=== PATIENT | male | born 1975 | race Caucasian/White ===

== ENCOUNTER 2016-06-28 09:17 | Observation (INO) | payer BC, OTHER ==
[2016-06-28] MEDS ORDERED: ASPIRIN 81 MG CHEWABLE TABLETS PO ONE (09:30)
[2016-06-28] MEDS ORDERED: NITROGLYCERIN SUBLINGUAL 1/150 0.4 MG TAB SL ONE (09:35)
[2016-06-28 09:41] LABS: MCH 28.9 pg (25.7-33.7); MCHC 33.1 g/dl (32.0-35.9); MEAN CELL VOLUME 87.3 fl (80-96); MEAN PLT VOLUME 7.5 fl (7.5-11.1); PLATELET COUNT 216 K/MM3 (134-434); RDW 13.6 % (11.9-15.9); WHITE BLOOD COUNT 5.4 K/mm3 (4.0-10.0)
--- NOTE | 2016-06-28 09:50 | PDOC ---
History of Present Illness - General Chief Complaint: Chest Pain Stated Complaint: CHEST PAIN Time Seen by Provider: 06/28/16 09:23 - History of Present Illness Initial Comments: 06/28/16 09:43 21-year-old male with a negative past medical history He is a nonsmoker, and does not have any known history of hypertension or hyperlipidemia, but he has not been to a primary care doctor for "a long time" He does have a extensive family history of CAD His brother, age 43, has CAD and stent His father also has CAD and stent Patient was driving to work today, when he suddenly developed left to mid chest pain which she describes as a "pulling feeling", which was unchanged with musculoskeletal maneuvers He states the discomfort lasted about an hour, and did not radiate down his arm , or up to his neck It was however associated with palpitations and lightheadedness He denies any syncope He does admit to some shortness of breath with it He states that the pain is decreasing now, and almost gone He states he had never had anything like this before He denies any recent intercurrent illnesses He denies any cough or sputum production He denies any abdominal pain associated with this He denies any nausea vomiting or diarrhea He denies any leg swelling, calf pain, or recent travel He denies any other complaints at this time, and the remainder of the review of systems is negative Past History - Past Medical History Allergies/Adverse Reactions: Allergies Allergy/AdvReac Type Severity Reaction Status Date / Time Penicillins Allergy Intermediate Verified 06/28/16 09:18 Home Medications: Ambulatory Orders NK [No Known Home Medication] 08/14/14 - Immunization History Immunization Up to Date: Yes - Psycho/Social/Smoking Cessation Hx Anxiety: No Suicidal Ideation: No Smoking Status: Yes Smoking History: Unknown if ever smoked Have you smoked in the past 12 months: No Number of Cigarettes Smoked Daily: 0 If you are a former smoker, when did you quit?: 10 YEARS AGO Information on smoking cessation initiated: No 'Breaking Loose' booklet given: 08/14/14 Hx Alcohol Use: Yes Drug/Substance Use Hx: No Substance Use Type: Alcohol Review of Systems - Review of Systems Able to Perform ROS?: Yes Comments:: 06/28/16 09:45 12 point review of systems is as per history of present illness and otherwise negative *Physical Exam - Vital Signs Last Vital Signs Temp Pulse Resp BP Pulse Ox 97.9 F 68 18 145/89 100 06/28/16 09:17 06/28/16 09:17 06/28/16 09:17 06/28/16 09:17 06/28/16 09:17 - Physical Exam Comments: 06/28/16 09:45 Physical exam Last Vital Signs Temp Pulse Resp BP Pulse Ox 97.9 F 68 18 145/89 100 06/28/16 09:17 06/28/16 09:17 06/28/16 09:17 06/28/16 09:17 06/28/16 09:17 GENERAL: The patient is awake, alert, and fully oriented, and in no apparent distress. HEAD: Normal with no signs of trauma. EYES: Sclera anicteric, conjunctiva normal ENT: He does membranes moist NECK: Normal range of motion, supple LUNGS: Breath sounds equal, clear to auscultation bilaterally. No wheezes, and no crackles. HEART: Regular rate and rhythm, normal S1 and S2 without murmur, rub or gallop. ABDOMEN: Soft, nontender, normoactive bowel sounds. No guarding, no rebound. No masses appreciated. CHEST WALL: There is no tenderness to palpation of the anterior chest wall, and the pain is not reproducible EXTREMITIES: Normal range of motion, no edema. No clubbing or cyanosis. No cords, erythema, or tenderness. There is no calf tenderness or swelling NEUROLOGICAL: Cranial nerves II through XII grossly intact. Normal speech, normal gait. Grossly nonfocal neurologic exam PSYCH: Normal mood, normal affect. SKIN: Warm, Dry, Heart Score/ECG Review - History History: Moderately suspicious - Electrocardiogram EKG: Non specific repolarization disturbance - Age Age: </= 45 - Risk Factors Risk Factors Heart Score: Yes Positive family hx of cardiac disease Based on the list above the patient has:: 1-2 risk factors - Troponin Troponin: </= normal limit - Score Heart Score - Total: 3 ED Treatment Course - LABORATORY CBC & Chemistry Diagram: 06/28/16 09:29 06/28/16 15:55 - RADIOLOGY Radiology Studies Ordered: Category Date Time Status CHEST X-RAY PORTABLE* [RAD] Stat Radiology 06/28/16 09:29 Ordered - Medications Given in the ED: ED Medications Discontinued Medications Generic Name Dose Route Start Last Admin Trade Name Freq PRN Reason Stop Dose Admin Aspirin 162 mg 06/28/16 09:30 06/28/16 09:34 Asa - PO 06/28/16 09:31 162 mg ONCE ONE Administration Nitroglycerin 0.4 mg 06/28/16 09:35 06/28/16 09:38 Nitrostat - SL 06/28/16 09:36 0.4 mg NOW ONE Administration Medical Decision Making - Medical Decision Making 06/28/16 09:47 EKG Normal sinus rhythm 67, rightward axis, with an axis of 208 Normal AV and IV conduction time Normal QTC There is poor R wave progression across the anterior precordium There are inverted T waves in 3 and F Other nonspecific ST-T waves are noted 41-year-old male with significant cardiac risk factors and his family history It is unknown if he also has hyperlipidemia, borderline diabetes, because he has not seen his primary care doctor in a long time The preliminary heart score is 3, in reality, the actual heart score may be higher than that Will start with aspirin and nitroglycerin We'll start a cardiac workup Patient will need serial cardiac enzymes, and provocative stress testing 06/28/16 12:19 D-dimer negative, CK elevated consistent with patient's extensive weight lifting history, troponin negative Chest x-ray NAD Laboratory Results - last 24 hr 06/28/16 06/28/16 06/28/16 09:29 09:30 09:30 WBC 5.4 D RBC 5.95 H Hgb 17.2 H Hct 51.9 H MCV 87.3 MCHC 33.1 RDW 13.6 Plt Count 216 MPV 7.5 INR D-Dimer Sodium 134 L Potassium 4.6 D Chloride 102 Carbon Dioxide 23 Anion Gap 9 BUN 22 H Creatinine 1.2 Creat Clearance w eGFR > 60 Random Glucose 85 Calcium 9.8 Magnesium 1.9 Total Bilirubin 1.0 D AST 86 H D ALT 80 H D Alkaline Phosphatase 46 Creatine Kinase 4402 H CK-MB (CK-2) Rel Index 1.0 Troponin I < 0.03 L Total Protein 7.2 Albumin 4.3 06/28/16 09:30 WBC RBC Hgb Hct MCV MCHC RDW Plt Count MPV INR 1.05 D-Dimer < 200 Sodium Potassium Chloride Carbon Dioxide Anion Gap BUN Creatinine Creat Clearance w eGFR Random Glucose Calcium Magnesium Total Bilirubin AST ALT Alkaline Phosphatase Creatine Kinase CK-MB (CK-2) Rel Index Troponin I Total Protein Albumin case discussed with Dr. Martin-cardiology Cardiac echo done-awaiting reading Will need serial enzymes, and provocative stress testing in the morning Will place in observation Case discussed with hospitalist *DC/Admit/Observation/Transfer Diagnosis at time of Disposition: Chest pain - Discharge Dispostion Condition at time of disposition: Stable Admit: Yes
[2016-06-28 10:00] LABS: ALBUMIN 4.3 g/dl (3.5-5.0); ALK PHOS 46 U/L (32-92); ANION GAP 9 (8-16); CALCIUM 9.8 mg/dl (8.4-10.2); CO2 23 mmol/L (22-28); CREATININE 1.2 mg/dl (0.6-1.3); GLUCOSE,RANDOM 85 mg/dl (74-106); MAGNESIUM 1.9 mg/dL (1.8-2.4); SGOT/AST 86 U/L (10-42); SGPT/ALT 80 U/L (10-40); TOT PROT 7.2 g/dl (6.4-8.3)
[2016-06-28] MEDS ORDERED: NITROGLYCERIN 2% OINTMENT - 1GM PACKET TD ONE ×2 (10:20→10:21)
[2016-06-28 10:27] LABS: INR 1.05 (0.82-1.09); PROTHROMBIN TIME (PATIENT) 11.4 SEC (10.2-13.0)
[2016-06-28 10:32] LABS: CPK(DFH) 4402 IU/L (38-174)
[2016-06-28 10:53] LABS: TROPONIN I (DFP) < 0.03 ng/ml (0.03-0.50)
[2016-06-28 11:34] LABS: D-DIMER < 200 ng/ml (<200-235)
--- NOTE | 2016-06-28 12:39 | HP ---
[id number] is a 41 y/o male with no significant past medical history, although, patient reports he has not been evaluated by a primary care physician in several years. He reports that while he was driving to work this AM on this date, he developed palpations and lightheadness with left sided non-radiating chest discomfort. He describes the pain as a pulling sensation to the left side of chest. Patient reports he felt that he was going to loose consciousness , however, patient denies any loss of consciousness. As a result, he sought evaluation in the emergency department. Upon arrival to the emergency department , he was given nitroglycerin but chest discomfort still persists. 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 [employer] Smoking: quit 15 years ago Alcohol: none Drugs: none Family History: father (alive), CAD, [place], [place] x2 brother (alive) [place] and stents Allergies Penicillins Allergy (Intermediate, Verified 06/28/16 09:18) FAMILY HISTORY RASH HOME MEDICATIONS: Medication Instructions Recorded NK [No Known Home Medication] 08/14/14 REVIEW OF SYSTEMS CONSTITUTIONAL: Absent: fever, chills, diaphoresis, generalized weakness, malaise, loss of appetite, weight change HEENT: Absent: rhinorrhea, nasal congestion, throat pain, throat swelling, difficulty swallowing, mouth swelling, ear pain, eye pain, visual changes CARDIOVASCULAR: Present: chest pain, palpations Absent: syncope, irregular heart rate, lightheadedness, peripheral edema RESPIRATORY: Absent: cough, shortness of breath, dyspnea with exertion, orthopnea, wheezing, stridor, hemoptysis GASTROINTESTINAL: Absent: abdominal pain, abdominal distension, nausea, vomiting, diarrhea, constipation, melena, hematochezia GENITOURINARY: Absent: dysuria, frequency, urgency, hesitancy, hematuria, flank pain, genital pain MUSCULOSKELETAL: Absent: myalgia, arthralgia, joint swelling, back pain, neck pain SKIN: Absent: rash, itching, pallor HEMATOLOGIC/IMMUNOLOGIC: Absent: easy bleeding, easy bruising, lymphadenopathy, frequent infections ENDOCRINE: Absent: unexplained weight gain, unexplained weight loss, heat intolerance, cold intolerance NEUROLOGIC: Absent: headache, focal weakness or paresthesias, dizziness, unsteady gait, seizure, mental status changes, bladder or bowel incontinence PSYCHIATRIC: Absent: anxiety, depression, suicidal or homicidal ideation, hallucinations. PHYSICAL EXAMINATION Vital Signs - 24 hr 06/28/16 06/28/16 06/28/16 09:17 10:35 12:02 Temperature 97.9 F Pulse Rate 68 Pulse Rate [ 70 78 Left] Respiratory 18 18 Rate Blood Pressure 145/89 Blood Pressure 146/67 129/58 [Right Arm] O2 Sat by Pulse 100 100 Oximetry (%) GENERAL: Awake, alert, and fully oriented, in no acute distress. HEAD: Normal with no signs of trauma. EYES: Pupils equal, round and reactive to light, extraocular movements intact, sclera anicteric, conjunctiva clear. No lid lag. EARS, NOSE, THROAT: Ears normal, nares patent, oropharynx clear without exudates. Moist mucous membranes. NECK: Normal range of motion, supple without lymphadenopathy, JVD, or masses. LUNGS: Breath sounds equal, clear to auscultation bilaterally. No wheezes, and no crackles. No accessory muscle use. HEART: Regular rate and rhythm, normal S1 and S2 without murmur, rub or gallop. ABDOMEN: Soft, nontender, not distended, normoactive bowel sounds, no guarding, no rebound, no masses. No hepatomegaly or splenomegaly. MUSCULOSKELETAL: no chest pain illicted upon palpation. Normal range of motion at all joints. No bony deformities or tenderness. No CVA tenderness. UPPER EXTREMITIES: 2+ pulses, warm, well-perfused. No cyanosis. No clubbing. Cap refill <2 seconds. No peripheral edema. LOWER EXTREMITIES: 2+ pulses, warm, well-perfused. No calf tenderness. No peripheral edema. NEUROLOGICAL: Cranial nerves II-XII intact. Normal speech. Normal gait. PSYCHIATRIC: Cooperative. Good eye contact. Appropriate mood and affect. SKIN: Warm, dry, normal turgor, multiple tattoos to billateral arms, chest, and back, no rashes or lesions noted. Laboratory Results - last 24 hr 06/28/16 06/28/16 06/28/16 09:29 09:30 09:30 WBC 5.4 D RBC 5.95 H Hgb 17.2 H Hct 51.9 H MCV 87.3 MCHC 33.1 RDW 13.6 Plt Count 216 MPV 7.5 INR D-Dimer Sodium 134 L Potassium 4.6 D Chloride 102 Carbon Dioxide 23 Anion Gap 9 BUN 22 H Creatinine 1.2 Creat Clearance w eGFR > 60 Random Glucose 85 Calcium 9.8 Magnesium 1.9 Total Bilirubin 1.0 D AST 86 H D ALT 80 H D Alkaline Phosphatase 46 Creatine Kinase 4402 H CK-MB (CK-2) Rel Index 1.0 Troponin I < 0.03 L Total Protein 7.2 Albumin 4.3 06/28/16 09:30 WBC RBC Hgb Hct MCV MCHC RDW Plt Count MPV INR 1.05 D-Dimer < 200 Sodium Potassium Chloride Carbon Dioxide Anion Gap BUN Creatinine Creat Clearance w eGFR Random Glucose Calcium Magnesium Total Bilirubin AST ALT Alkaline Phosphatase Creatine Kinase CK-MB (CK-2) Rel Index Troponin I Total Protein Albumin IMAGING EKG, nsr, right axis deviation, inverted t waves leads III and AVF ASSESSMENT/PLAN: 1) card:chest pain r/o acs - contious cardiac monitoring - troponin x 1 wnl, pending 2 and 3 - pending echo - stress test ordered, pt will be have excercise stress test at 1430 toay - appreciate cardiology input 2) GI: - transaminitis, elevated LFT's tbill wnl, benign abd exam, likely from dietary supplements 0pt reports drinking several diet supplements daily - repeat cmp in am f/e/n -regular diet - elevated ck, will order IVF and trend ck ppx - oob, low risk - zantac dispo: requires 24 hour obsv Visit type - Emergency Visit Emergency Visit: Yes ED Registration Date: 06/28/16 Care time: The patient presented to the Emergency Department on the above date and was hospitalized for further evaluation of their emergent condition. - New Patient This patient is new to me today: Yes Date on this admission: 06/28/16 - Critical Care Critical Care patient: Yes Total Critical Care Time (in minutes): 45 Critical Care Statement: The care of this patient involved high complexity decision making to prevent further life threatening deterioration of the patient 's condition and/or to evalute & treat vital organ system(s) failure or risk of failure.
[2016-06-28] MEDS ORDERED: SODIUM CHLORIDE 1,000 ML IV STA (12:51)
[2016-06-28 12:56] LABS: PH,URINE 7.5 (4.5-8); URINE APPEARANCE Clear; URINE BILIRUBIN Negative (NEGATIVE); URINE BLOOD Negative (NEGATIVE); URINE GLUCOSE (UA) Negative (NEGATIVE); URINE KETONE Negative (NEGATIVE); URINE LEUK ESTERASE Negative (NEGATIVE); URINE NITRITE Negative (NEGATIVE); URINE PROTEIN Negative (NEGATIVE); URINE UROBILINOGEN 0.2 E.U/dl (0.2-1.0)
[2016-06-28 12:57] LABS: URINE COLOR YELLOW
--- NOTE | 2016-06-28 15:21 | CONSULT ---
Cardiology Consult (text) - Consultation Consultation Note: CC: CP 41 y/o male with no significant past medical history, p/w cp while driving to work. developed CP lasting a few minutes associated with palpitations while stressed driving this morning. 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 This time associated with dizziness. In ER received nitroglycerin without improvement. Typically exercises for 2 hours a day without sx's or limitations. Last did so yesterday. Takes weight lifting supplements in addition to daily steroid injections. no vieira, orthopnea, pnd, le edema, claudication, bleeding or transient neurologic symptoms no recent illness or decreased po intake. no f/c/s, n/v/d, headache, rashes, visual disturbances. PAST MEDICAL HISTORY: none PAST SURGICAL HISTORY: none Social History: former smoker,5-6 drinks on the weekends. Steroid use. Family History: father (alive), aortic dissection in his 40's and later Cab[place] in his 50's, brother (alive) congenital AV disorder s/p AVR ros: per [facility] Ambulatory Orders NK [No Known Home Medication] 08/14/14 Current Medications Aspirin (Ecotrin -) 81 mg PO DAILY [facility]IV[facility] Ranitidine HCl (Zantac -) 150 mg PO DAILY [facility] Vital Signs - 24 hr 06/28/16 06/28/16 06/28/16 09:17 10:35 12:02 Temperature 97.9 F Pulse Rate 68 Pulse Rate [ 70 78 Left] Respiratory 18 18 Rate Blood Pressure 145/89 Blood Pressure 146/67 129/58 [Right Arm] O2 Sat by Pulse 100 100 Oximetry (%) 06/28/16 13:25 Temperature Pulse Rate Pulse Rate [ 76 Left] Respiratory 18 Rate Blood Pressure Blood Pressure 149/50 [Right Arm] O2 Sat by Pulse 99 Oximetry (%) Intake & Output 06/26/16 06/27/16 06/28/16 06/29/16 07:59 07:59 07:59 07:59 Weight 209 lb NAD, calm, muscular JVD flat, neck supple CTAB, nl effort' RRR nl s1, s2 no m/r/g + bs soft nt nd ext without edema. Borderline clubbing of digits? no jaundice, diaphoresis aaox3 CBC, BMP 06/28/16 09:29 06/28/16 09:30 Laboratory Tests 06/28/16 06/28/1617 09:30 09:30 09:30 D-Dimer < 200 Total Bilirubin 1.0 D AST 86 H D ALT 80 H D Alkaline Phosphatase 46 Creatine Kinase 4402 H CK-MB (CK-2) Rel Index 1.0 Troponin I < 0.03 L EKG: NSR, right superior axis. anterior q waves. j point elevation. tele: NSR echo today: Mild conc lvh. Nl lv/rv fn. No sig valvular abnormalities 41 y/o male with no significant past medical history, p/w cp while driving to work. CP - SOCORRO, EKG without ischemic changes. d-dimer low - Family h/o CAD and exertional symptoms, would further evaluate with stress echo. (imaging due to underlying EKG abnormalities) - telemetry monitoring thus far unremarkable - tx of rhabdo per pmd - patient counseled on stopping anabolic steroid use. - bp control Likely HTN with LVH on echo - would initate carvedilol 3.125 mg bid
[2016-06-28 17:10] LABS: CREATININE 1.3 mg/dL (0.7-1.3)
[2016-06-28 17:16] LABS: CK MB 42.5 ng/ml (0.3-4.0)
[2016-06-28 17:49] LABS: TROPONIN I 0.02 ng/ml (0.00-0.05)
[2016-06-28] MEDS ORDERED: ACETAMINOPHEN 325 MG TABLET (FP) PO ONE (17:51)
[2016-06-28] MEDS ORDERED: ACETAMINOPHEN 325 MG TABLET (FP) ONE (17:53)
[2016-06-28 18:10] VITALS: BMI 31.8
[2016-06-28] MEDS ORDERED: CARVEDILOL 3.125 MG TABLET (FP) PO ONE (21:54)
[2016-06-28 22:45] LABS: CPK(DFH) 1970 IU/L (38-174); TROPONIN I (DFP) < 0.03 ng/ml (0.03-0.50)
[2016-06-28 22:47] LABS: CK MB 19.5 ng/ml (0.3-4.0)
[2016-06-29 06:45] VITALS: TEMP 99.1
[2016-06-29 08:31] LABS: CHOLESTEROL 171 mg/dl
[2016-06-29] MEDS ORDERED: ASPIRIN COATED 81 MG TABLET.EC PO SCH (10:00)
[2016-06-29] MEDS ORDERED: RANITIDINE HCL 150 MG TABLET (FP) PO SCH (10:00)
[2016-06-29 10:03] VITALS: BP 147/69; PULSE 66
[2016-06-29 10:26] LABS: TROPONIN I (DFP) < 0.03 ng/ml (0.03-0.50)
[2016-06-29 11:11] LABS: CPK(DFH) 1570 IU/L (38-174)
[2016-06-29] MEDS ORDERED: CARVEDILOL 3.125 MG TABLET (FP) PO SCH (12:00)
[2016-06-29 12:17] LABS: CK MB 16.6 ng/ml (0.3-4.0)
--- NOTE | 2016-06-29 13:15 | DS ---
Physical Exam: SUBJECTIVE: Patient seen and examined OBJECTIVE: Vital Signs Period Temp Pulse Resp BP Sys/Mcintosh Pulse Ox Last 24 Hr 97.7 F-99.1 F 63-82 16-18 142-150/50-88 97-99 PHYSICAL EXAM GENERAL: The patient is awake, alert, and fully oriented, in no acute distress. HEAD: Normal with no signs of trauma. EYES: PERRL, extraocular movements intact, sclera anicteric, conjunctiva clear. ENT: Ears normal, nares patent, oropharynx clear without exudates, moist mucous membranes. NECK: Trachea midline, full range of motion, supple. LUNGS: Breath sounds equal, clear to auscultation bilaterally, no wheezes, no crackles, no accessory muscle use. HEART: Regular rate and rhythm, S1, S2 without murmur, rub or gallop. ABDOMEN: Soft, nontender, nondistended, normoactive bowel sounds, no guarding, no rebound, no hepatosplenomegaly, no masses. EXTREMITIES: 2+ pulses, warm, well-perfused, no edema. NEUROLOGICAL: Cranial nerves II through XII grossly intact. Normal speech, gait not observed. PSYCH: Normal mood, normal affect. SKIN: Warm, dry, normal turgor, no rashes or lesions noted. LABS Laboratory Results - last 24 hr 06/28/16 06/28/16 06/28/16 15:55 15:55 21:50 Sodium 137 Potassium 4.0 Chloride 101 Carbon Dioxide 29 Anion Gap 7 L BUN 21 H Creatinine 1.3 Random Glucose 130 H Calcium 9.0 Creatine Kinase 2427 H 1970 H D Creatine Kinase Index 0.8 CK-MB (CK-2) 20.237 H 19.5 H CK-MB (CK-2) Rel Index Troponin I 0.02 < 0.03 L Triglycerides Cholesterol Total LDL Cholesterol HDL Cholesterol 06/29/16 06/29/16 Unknown Unknown Sodium Potassium Chloride Carbon Dioxide Anion Gap BUN Creatinine Random Glucose Calcium Creatine Kinase 1570 H D Creatine Kinase Index CK-MB (CK-2) 16.6 H CK-MB (CK-2) Rel Index 1.1 Troponin I < 0.03 L Triglycerides 70 Cholesterol 171 Total LDL Cholesterol 141 HDL Cholesterol 16 L HOSPITAL COURSE: Date of Admission:06/28/16 Date of Discharge: 06/29/16 Minutes to complete discharge: 35 Discharge Summary Reason For Visit: CHEST PAIN Current Active Problems Chest pain (Acute) Condition: Stable - Home Medications Comprehensive Discharge Medication List: Ambulatory Orders NK [No Known Home Medication] 08/14/14
--- NOTE | 2016-06-29 13:49 | EKG ---
Test Reason : Blood Pressure : / mmHG Vent. Rate : 067 BPM Atrial Rate : 067 BPM P-R Int : 170 ms QRS Dur : 102 ms QT Int : 380 ms P-R-T Axes : 065 208 004 degrees QTc Int : 401 ms NORMAL SINUS RHYTHM RIGHT SUPERIOR AXIS DEVIATION NONSPECIFIC T WAVE ABNORMALITY CANNOT RULE OUT ANTEROSEPTAL INFARCT POOR R WAVE PROGRESSION ABNORMAL ECG NO PREVIOUS ECGS AVAILABLE Confirmed by JACK GAXIOLA MD ([id number]) on 06/29/2016 1:49:15 PM Referred By: DEDRA CARROLL Confirmed By:JACK GAXIOLA MD
== END 2016-06-29 14:12 | disposition home or self-care (01) ==
LOC: FER 09:17 → FM/S 12:39
PROVIDERS: ADMIT Internal Medicine; ATTEND Nurse Practitioner Family
DX: R07.9 Chest pain, unspecified (principal); Z82.49 Family history of ischemic heart disease and other diseases of the circulatory system
CPT/HCPCS: 36415; 71010-TC; 80048; 80053; 80061; 81003; 82550; 82553; 83735; 84484; 85027; 85379; 85610; 93005; 93306-TC; 93351; 99285-25; G0378

== ENCOUNTER 2016-08-28 09:31 | Emergency (ER) | payer OTHER, BC ==
[2016-08-28] MEDS ORDERED: NAPROXEN 500 MG TABLET (FP) PO ONE (09:36)
[2016-08-28 09:45] VITALS: BP 137/78; PULSE 93; TEMP 98.1; BMI 32.4
--- NOTE | 2016-08-28 09:47 | PDOC ---
History of Present Illness - General Chief Complaint: Injury Stated Complaint: RT KNEE PAIN, LOWER BACK PAIN FALL Time Seen by Provider: 08/28/16 09:36 History Source: Patient, Spouse Exam Limitations: No Limitations - History of Present Illness Initial Comments: 08/28/16 09:43 41-year-old male with no past medical history presents to the emergency department for right knee pain and lower back pain. 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 Denies any numbness or weakness. Patient also reports lower back discomfort. Denies falls. Past History - Past Medical History Allergies/Adverse Reactions: Allergies Allergy/AdvReac Type Severity Reaction Status Date / Time Penicillins Allergy Intermediate Verified 08/28/16 09:33 Home Medications: Ambulatory Orders Naproxen [Naprosyn -] 500 mg PO BID PRN #30 tablet 08/28/16 - Immunization History Immunization Up to Date: Yes - Psycho/Social/Smoking Cessation Hx Anxiety: No Suicidal Ideation: No Smoking Status: Yes Smoking History: Unknown if ever smoked Have you smoked in the past 12 months: No Number of Cigarettes Smoked Daily: 0 If you are a former smoker, when did you quit?: 10 YEARS AGO 'Breaking Loose' booklet given: 08/14/14 Hx Alcohol Use: Yes Drug/Substance Use Hx: No Substance Use Type: Alcohol Review of Systems - Review of Systems Able to Perform ROS?: Yes Comments:: 08/28/16 09:44 GENERAL/CONSTITUTIONAL: No fever, weakness. HEAD, EYES, EARS, NOSE AND THROAT: No change in vision. No ear pain or discharge. No sore throat. CARDIOVASCULAR: No chest pain or shortness of breath. RESPIRATORY: No cough, wheezing, or hemoptysis. GASTROINTESTINAL: No abdominal pain, nausea, vomiting, diarrhea, or decreased PO intolerance. GENITOURINARY: No dysuria, frequency, or change in urination. MUSCULOSKELETAL: +right knee pain SKIN: No rash NEUROLOGIC: No headache, vertigo, loss of consciousness, or change in strength/ sensation. ENDOCRINE: No increased thirst. No abnormal weight change. HEMATOLOGIC/LYMPHATIC: No anemia, easy bleeding, or history of blood clots. ALLERGIC/IMMUNOLOGIC: No hives or skin allergy. *Physical Exam - Physical Exam Comments: 08/28/16 09:45 GENERAL: Awake, alert, and fully oriented, in no acute distress. HEAD: No signs of trauma EYES: PERRLA, EOMI, sclera anicteric, conjunctiva clear BACK: TTP lumbar spine ~L4-L5. no step offs appreciated. EXTREMITIES: RLE: R knee with negative anterior and posterior drawer test. TTP medial aspect of right knee. Negative varus and negative varus test. NEUROLOGICAL: Cranial nerves II through XII grossly intact. Normal speech, normal gait SKIN: Warm, Dry, normal turgor, no rashes or lesions noted. ED Treatment Course - RADIOLOGY Radiology Studies Ordered: Category Date Time Status KNEE 3 POS-RIGHT [RAD] Stat Radiology 08/28/16 09:36 Ordered SPINE-LUMBAR SACRAL [RAD] Stat Radiology 08/28/16 09:36 Ordered Medical Decision Making - Medical Decision Making 08/28/16 09:46 Likely MSK back pain and R knee sprain. xray lumbar spine and right knee. 08/28/16 10:41 Lumbar spine xray reviewed: degenerative changes. R knee xray: no acute pathology. likely mild/mod R knee sprain. No knee joint instability appreciated. Pt defers crutches and knee immobilizer. CRISTI wrap applied. RICE therapy. Weight bearing as tolerated. Follow up with ortho if symptoms persist > 2 weeks. Pt's at bedside, verbalizes understanding and agrees with plan. I discussed the physical exam findings, ancillary test results and final diagnoses with the patient. I answered all of the patient's questions. The patient was satisfied with the care received and felt comfortable with the discharge plan and treatment plan. The patient will call their primary care physician within 24 hours to arrange follow-up and will return to the Emergency Department with any new, persistant or worsening symptoms. *DC/Admit/Observation/Transfer Diagnosis at time of Disposition: Knee sprain Qualifiers: Encounter type: initial encounter Involved ligament of knee: unspecified ligament Laterality: right Qualified Code(s): S83.91XA - Sprain of unspecified site of right knee, initial encounter - Discharge Dispostion Disposition: HOME Condition at time of disposition: Stable Admit: No - Prescriptions Prescriptions: Naproxen [Naprosyn -] 500 mg PO BID PRN #30 tablet PRN Reason: Knee Pain - Referrals Referrals: Pablo Montemayor MD [Staff Physician] - - Patient Instructions Printed Discharge Instructions: DI for Knee Sprain, How to Use an Elastic Bandage-Knee Sprain Additional Instructions: Elevate the leg as much as you can. Ice as needed. Wrap your knee for comfort. Weight bearing as tolerated. 500 mg naproxen every 12 hours as needed for pain. If symptoms persist for more than 2 weeks, make an appointment with orthopedics. - Post Discharge Activity Work/School Note: Back to Work
[2016-08-28] MEDS ORDERED: NAPROXEN 500 MG TABLET (FP) ONE (09:48)
== END 2016-08-28 10:50 | disposition home or self-care (01) ==
LOC: FER 09:31
DX: S83.91XA Sprain of unspecified site of right knee, initial encounter (principal); W18.30XA Fall on same level, unspecified, initial encounter; Y93.89 Activity, other specified; Y92.410 Unspecified street and highway as the place of occurrence of the external cause; Y99.0 Civilian activity done for income or pay; Z87.891 Personal history of nicotine dependence
CPT/HCPCS: 72100-TC; 73562-TC-RT; 99283-25

== ENCOUNTER 2018-01-30 14:38 | Observation (INO) | payer BC ==
[2018-01-30] MEDS ORDERED: SODIUM CHLORIDE 1,000 ML IV STA (14:51)
[2018-01-30 15:32] LABS: URINE APPEARANCE Clear; URINE BILIRUBIN Negative (NEGATIVE); URINE COLOR Yellow; URINE GLUCOSE (UA) Negative (NEGATIVE); URINE KETONE Negative (NEGATIVE); URINE LEUK ESTERASE Negative (NEGATIVE); URINE NITRITE Negative (NEGATIVE); URINE PROTEIN Negative (NEGATIVE); URINE UROBILINOGEN 0.2 (0.2-1.0)
[2018-01-30 15:33] LABS: BASO % 0.5 % (0-2.0); EOS % 3.1 % (0-4.5); HEMATOCRIT 51.1 % (35.4-49); HEMOGLOBIN 17.1 GM/dl (11.7-16.9); LYMPH % 27.9 % (8-40); MCH 30.5 pg (25.7-33.7); MCHC 33.4 g/dl (32.0-35.9); MEAN CELL VOLUME 91.4 fl (80-96); MEAN PLT VOLUME 8.6 fl (7.5-11.1); NEUT % 58.5 % (42.8-82.8); PLATELET COUNT 160 K/MM3 (134-434); RBC 5.59 M/mm3 (4.00-5.60); RDW 12.9 % (11.9-15.9); WHITE BLOOD COUNT 4.9 K/mm3 (4.0-10.8)
[2018-01-30 15:49] LABS: ALBUMIN 4.2 g/dl (3.5-5.0); ALK PHOS 46 U/L (32-92); ANION GAP 6 MMOL/L (8-16); BILIRUBIN,TOTAL 0.5 mg/dl (0.2-1.0); BLOOD UREA NITROGEN 17 mg/dl (7-18); CALCIUM 8.4 mg/dl (8.4-10.2); CHLORIDE 102 mmol/L (98-107); CO2 22 mmol/L (22-28); CREATININE 1.1 mg/dl (0.6-1.3); GLUCOSE,RANDOM 100 mg/dl (74-106); POTASSIUM 3.9 mmol/L (3.5-5.1); SGOT/AST 75 U/L (10-42); SGPT/ALT 59 U/L (10-40); SODIUM 130 mmol/L (136-145); TOT PROT 6.8 g/dl (6.4-8.3); URIC ACID 3.3 mg/dl (2.6-7.2)
[2018-01-30] MEDS ORDERED: KETOROLAC TROMETHAMINE 30 MG/1 ML VIAL IVPUSH ONE (15:53)
[2018-01-30] MEDS ORDERED: KETOROLAC TROMETHAMINE 30 MG/1 ML VIAL ONE (15:54)
--- NOTE | 2018-01-30 16:35 | PDOC ---
History of Present Illness - General Chief Complaint: Pain Stated Complaint: PAIN Time Seen by Provider: 01/30/18 14:47 - History of Present Illness Initial Comments: 01/30/18 16:28 42 M with no PMH presenting with diffuse myalgias. Pt was seen here 2 days ago for similar complaint, migrating cramp-like pain in his BUE and BLEs, as well as intermittent fevers. Pt was tested for Tick-borne illnesses and sent home on doxy, which he has been taking. However, pt returns to ER today with persistent polyarthralgias. Pt denies any fevers today. He complains mainly of pain in his arms and legs, stating that even gripping his toothpaste was difficult. He denies any unilateral weakness or numbness. Denies CP/SOB. Denies abdominal pain /N/V. Past History - Past Medical History Allergies/Adverse Reactions: Allergies Allergy/AdvReac Type Severity Reaction Status Date / Time Penicillins Allergy Intermediate Verified 01/30/18 14:40 Home Medications: Ambulatory Orders Doxycycline Hyclate [Vibramycin -] 100 mg PO BID #20 capsule 01/28/18 Ibuprofen [Motrin -] 600 mg PO TID 01/28/18 COPD: No - Immunization History Immunization Up to Date: Yes - Suicide/Smoking/Psychosocial Hx Smoking Status: Yes Smoking History: Unknown if ever smoked Have you smoked in the past 12 months: No Number of Cigarettes Smoked Daily: 0 If you are a former smoker, when did you quit?: 10 YEARS AGO 'Breaking Loose' booklet given: 08/14/14 Hx Alcohol Use: Yes Drug/Substance Use Hx: No Substance Use Type: Alcohol Review of Systems - Review of Systems Comments:: 01/30/18 16:35 GENERAL/CONSTITUTIONAL: No fever or chills. No weakness. HEAD, EYES, EARS, NOSE AND THROAT: No change in vision. No ear pain or discharge. No sore throat. CARDIOVASCULAR: No chest pain or shortness of breath. RESPIRATORY: No cough, wheezing, or hemoptysis. GASTROINTESTINAL: No nausea, vomiting, diarrhea or constipation. GENITOURINARY: No dysuria, frequency, or change in urination. MUSCULOSKELETAL: +diffuse muscle aches. No joint swelling. No neck or back pain. SKIN: No rash NEUROLOGIC: No headache, vertigo, loss of consciousness, or change in strength/ sensation. ENDOCRINE: No increased thirst. No abnormal weight change. HEMATOLOGIC/LYMPHATIC: No anemia, easy bleeding, or history of blood clots. ALLERGIC/IMMUNOLOGIC: No hives or skin allergy. *Physical Exam - Vital Signs Last Vital Signs Temp Pulse Resp BP Pulse Ox 98.7 F 71 16 154/89 100 01/30/18 14:39 01/30/18 14:39 01/30/18 14:39 01/30/18 14:39 01/30/18 14:39 - Physical Exam Comments: 01/30/18 16:35 "GENERAL: Awake, alert, and fully oriented, in no acute distress. HEAD: No signs of trauma EYES: PERRLA, EOMI, sclera anicteric, conjunctiva clear ENT: Auricles normal inspection, hearing grossly normal, nares patent, oropharynx clear without exudates. Moist mucosa NECK: Nontender, no stepoffs, Normal ROM, supple, no lymphadenopathy, JVD, or masses LUNGS: Breath sounds equal, clear to auscultation bilaterally. No wheezes, and no crackles HEART: Regular rate and rhythm, normal S1 and S2, no murmurs, rubs or gallops ABDOMEN: Soft, nontender, normoactive bowel sounds. No guarding, no rebound. No masses EXTREMITIES: Normal range of motion, no edema. No clubbing or cyanosis. No cords, erythema, or tenderness NEUROLOGICAL: Cranial nerves II through XII intact. 5/5 strength and sensation in all extremities, Normal speech, normal gait, normal cerebellar function SKIN: Warm, Dry, normal turgor, no rashes or lesions noted. ED Treatment Course - LABORATORY CBC & Chemistry Diagram: 01/30/18 15:05 01/30/18 15:11 - ADDITIONAL ORDERS Additional order review: Laboratory Results 01/30/18 01/30/18 01/30/18 16:00 15:11 15:11 Sodium 130 L Potassium 3.9 Chloride 102 Carbon Dioxide 22 Anion Gap 6 L BUN 17 Creatinine 1.1 Creat Clearance w eGFR > 60 Random Glucose 100 Uric Acid 3.3 Calcium 8.4 Total Bilirubin 0.5 AST 75 H D ALT 59 H Alkaline Phosphatase 46 Creatine Kinase 2655 H Total Protein 6.8 Albumin 4.2 Urine Color Yellow Urine Appearance Clear Urine pH 5.0 D Ur Specific [place] <= 1.005 Urine Protein Negative Urine Glucose (UA) Negative Urine Ketones Negative Urine Blood Negative Urine Nitrite Negative Urine Bilirubin Negative Urine Urobilinogen 0.2 Ur Leukocyte Esterase Negative 01/30/18 15:05 RBC 5.59 MCV 91.4 MCHC 33.4 RDW 12.9 MPV 8.6 Neutrophils % 58.5 Lymphocytes % 27.9 D Monocytes % 10.0 Eosinophils % 3.1 D Basophils % 0.5 - Medications Given in the ED: ED Medications Discontinued Medications Generic Name Dose Route Start Last Admin Trade Name Sylvia PRN Reason Stop Dose Admin Sodium Chloride 1,000 mls @ 1,000 mls/hr 01/30/18 14:51 01/30/18 15:07 Normal Saline - IV 01/30/18 15:50 1,000 mls/hr ASDIR STA Administration Ketorolac Tromethamine 30 mg 01/30/18 15:53 01/30/18 16:10 Toradol Injection - IVPUSH 01/30/18 15:54 30 mg ONCE ONE Administration Medical Decision Making - Medical Decision Making 01/30/18 16:35 42 M with polyarthralgias, intermittent fevers. Lyme titers from 2 days ago negative. Labs drawn at that time notable for elevated monocytes, suggestive of possible mononucleosis. Will evaluate for rheumatologic disease. 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 - Labs, CPK - Monoscreen - ESR, CRP, RF, ASAD - IVF, pain control 01/30/18 17:25 Labs consistent with mild rhabdo. Will continue IVF Admitted to hospitalist. *DC/Admit/Observation/Transfer Diagnosis at time of Disposition: Rhabdomyolysis - Discharge Dispostion Decision to Admit order: Yes - Referrals - Patient Instructions - Post Discharge Activity - Attestations Physician Attestion: 01/30/18 17:28 I, Dr. Pablo Up MD, attest that this document has been prepared under my direction and personally reviewed by me in its entirety. I further attest, that it accurately reflects all work, treatment, procedures and medical decision -making performed by me.
[2018-01-30] MEDS ORDERED: ACETAMINOPHEN 325 MG TABLET (FP) PO PRN (18:17)
--- NOTE | 2018-01-30 18:17 | HP ---
CHIEF COMPLAINT: Muscle aches PCP: None HISTORY OF PRESENT ILLNESS: 42 year-old male with no significant PMH presents to the ED with a complaint of severe muscle aches and pain in back, upper and lower extremities. Patient reports about a week ago he had a few episodes of back pain which resolved. Patient works out 6/7 days a week, weight lifting, 2 hours per session. He was able to do his workouts through Thursday 01/25. He went to the [facility] over the weekend. On Sunday he woke up with severe back pain. He had subjective fever and felt very fatigued. On Sunday, the pain progressed to his upper extremities , and then to his lower extremities. He was unable to squeeze a toothpaste tube secondary to pain and was dropping things. He was seen in the ED and blood work was done. He was sent home with a prescription for doxycline. Lyme test was negative. The pain continued to worsen to where patient had difficulty walking and he returned to the ED today. Patient works for the [employer] and travels on some weekends to the [facility]. Patient takes vitamins and workout supplements. No recent steroid use. Denies chest pain, shortness of breath, cough; abdominal pain, nausea, vomiting , diarrhea; headache, photophobia, neck pain/stiffness; tick bites (he checks regularly), rash; boss told him that a co worker has similar symptoms and is hospitalized for Lyme disease ER course was notable for: (1) CPK 2655 (2) Na 130 (3) NS 1.5L Recent Travel: No PAST MEDICAL HISTORY: None reported PAST SURGICAL HISTORY: None reported Social History: Smoking: quit 2000 Alcohol: weekends Drugs: no Family History: father 70s AAA and valve replacement; brother early 40s with mechanical valve and tissue valve replacements; mother a&w; 2 brothers a&w Allergies Penicillins Allergy (Intermediate, Verified 01/30/18 14:40) Home Medications Medication Instructions Recorded Doxycycline Hyclate [Vibramycin -] 100 mg PO BID #20 capsule 01/28/18 Ibuprofen [Motrin -] 600 mg PO TID 01/28/18 ROS: GENERAL/CONSTITUTIONAL: Yes: myalgias, weakness/fatigue No: fever, chills, loss of appetite. HEAD, EYES, EARS, NOSE AND THROAT: No: change in vision, ear pain, discharge, sore throat, throat swelling. CARDIOVASCULAR: No: chest pain, lightheadedness, palpitations, syncope RESPIRATORY: No: cough, shortness of breath, wheezing GASTROINTESTINAL: No: nausea, vomiting, diarrhea, abdominal pain GENITOURINARY: No: dysuria, hematuria, frequency, urgency, flank pain. MUSCULOSKELETAL: Yes: back pain, joint pain No: neck pain, muscle swelling or pain SKIN: No: lesions, pallor, rash or easy bruising. NEUROLOGIC: No: headache, vertigo, paresthesias ENDOCRINE: No: unexplained weight gain or loss HEMATOLOGIC/LYMPHATIC: No: anemia, easy bleeding, swelling nodes. PHYSICAL EXAMINATION Vital Signs - 24 hr 01/30/18 14:39 Temperature 98.7 F Pulse Rate 71 Respiratory 16 Rate Blood Pressure 154/89 O2 Sat by Pulse 100 Oximetry (%) PE: GENERAL: The patient is in no acute distress, awake and alert, overall well appearing HEAD: Normal with no signs of trauma. EYES: PERRLA, EOMI, sclera anicteric, conjunctiva clear. ENT: Ears normal, nares patent, oropharynx clear without exudates. Moist mucous membranes. NECK: Normal range of motion, supple without lymphadenopathy, JVD, or masses. LUNGS: Breath sounds equal, clear to auscultation bilaterally. No wheezes, and no crackles. HEART:Regular rate and rhythm, normal S1 and S2 without murmur, rub or gallop. ABDOMEN: Soft, nontender, no guarding, no rebound EXTREMITIES: Full ROM upper extremities, diminished washer carcass bilaterally; SLR bilaterally to 30 degrees secondary to pain NEUROLOGICAL: Cranial nerves II through XII grossly intact. Normal speech. No focal neurological deficits. SKIN: Warm, Dry, normal turgor. Tattoos Laboratory Results - last 24 hr 01/30/18 01/30/18 01/30/18 15:05 15:05 15:11 WBC 4.9 RBC 5.59 Hgb 17.1 H Hct 51.1 H MCV 91.4 MCH 30.5 MCHC 33.4 RDW 12.9 Plt Count 160 MPV 8.6 Absolute Neuts (auto) 2.8 Neutrophils % 58.5 Lymphocytes % 27.9 D Monocytes % 10.0 Eosinophils % 3.1 D Basophils % 0.5 ESR 1 Sodium Potassium Chloride Carbon Dioxide Anion Gap BUN Creatinine Creat Clearance w eGFR Random Glucose Lactic Acid Uric Acid Calcium Total Bilirubin AST ALT Alkaline Phosphatase Creatine Kinase Creatine Kinase Index CK-MB (CK-2) Total Protein Albumin Urine Color Yellow Urine Appearance Clear Urine pH 5.0 D Ur Specific [place] <= 1.005 Urine Protein Negative Urine Glucose (UA) Negative Urine Ketones Negative Urine Blood Negative Urine Nitrite Negative Urine Bilirubin Negative Urine Urobilinogen 0.2 Ur Leukocyte Esterase Negative 01/30/18 01/30/18 01/30/18 15:11 15:30 16:00 WBC RBC Hgb Hct MCV MCH MCHC RDW Plt Count MPV Absolute Neuts (auto) Neutrophils % Lymphocytes % Monocytes % Eosinophils % Basophils % ESR Sodium 130 L Potassium 3.9 Chloride 102 Carbon Dioxide 22 Anion Gap 6 L BUN 17 Creatinine 1.1 Creat Clearance w eGFR > 60 Random Glucose 100 Lactic Acid 1.2 Uric Acid 3.3 Calcium 8.4 Total Bilirubin 0.5 AST 75 H D ALT 59 H Alkaline Phosphatase 46 Creatine Kinase 2655 H Creatine Kinase Index 1.9 CK-MB (CK-2) 50.8 H Total Protein 6.8 Albumin 4.2 Urine Color Urine Appearance Urine pH Ur Specific [place] Urine Protein Urine Glucose (UA) Urine Ketones Urine Blood Urine Nitrite Urine Bilirubin Urine Urobilinogen Ur Leukocyte Esterase ASSESSMENT/PLAN: 42 year-old male with no significant PMH placed on observation for myalgias. 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 Full code. Visit type - Emergency Visit Emergency Visit: Yes ED Registration Date: 01/30/18 Care time: The patient presented to the Emergency Department on the above date and was hospitalized for further evaluation of their emergent condition. - New Patient This patient is new to me today: Yes Date on this admission: 01/31/18 - Critical Care Critical Care patient: No Hospitalist Screening - Colonoscopy Questionnaire Colonoscopy Questionnaire: Colonoscopy Questionnaire - Patient: 50 - 75 years old and never had a screening colonoscopy: No History of colon or rectal polyps, or CA: No History of IBD, Crohn's disease or UC: No History of abdominal radiation therapy as a child: No - Relative: 1 with colon or rectal CA, or polyps at age 60 or younger: Unknown Colon or rectal CA diagnosed at age 45 or younger: Unknown Multiple relatives with colon or rectal CA: Unknown - Outcome: Screening Result: Negative Screen
[2018-01-30] MEDS: SODIUM CHLORIDE 1,000 ML IV STA ×2 (18:25→18:32)
[2018-01-30] MEDS ORDERED: DOXYCYCLINE HYCLATE 100 MG VIAL ONE (18:26)
[2018-01-30] MEDS: DOXYCYCLINE INJECTION 100 MG in DEXTROSE 5%-WATER - 100 ML IVPB SCH ×2 (18:32→18:33)
[2018-01-30] MEDS ORDERED: morphine CARPU-JECT 2 MG/1 ML DISP.SYRIN IVPUSH PRN (19:16)
[2018-01-30] MEDS: SODIUM CHLORIDE 1,000 ML IV SCH (19:18)
[2018-01-30 19:24] VITALS: BMI 32.7
[2018-01-30] MEDS ORDERED: CEFTRIAXONE 2 GM/100 ML BAG IVPB SCH (21:00)
[2018-01-30] MEDS: ACETAMINOPHEN 325 MG TABLET (FP) PO PRN (22:44)
[2018-01-30] MEDS: oxyCODONE HCL 5 MG TABLET PO PRN (22:45)
[2018-01-31] MEDS: ACETAMINOPHEN 325 MG TABLET (FP) PO PRN ×2 (05:30→23:26)
[2018-01-31] MEDS: oxyCODONE HCL 5 MG TABLET PO PRN ×3 (06:10→23:21)
[2018-01-31 07:08] LABS: BASO % 0.4 % (0-2.0); EOS % 3.9 % (0-4.5); HEMATOCRIT 43.4 % (35.4-49); HEMOGLOBIN 14.7 GM/dL (11.7-16.9); LYMPH % 31.5 % (8-40); MCH 30.3 pg (25.7-33.7); MCHC 33.8 g/dl (32.0-35.9); MEAN CELL VOLUME 89.6 fl (80-96); MEAN PLT VOLUME 8.5 fl (7.5-11.1); MONO % 11.3 % (3.8-10.2); NEUT % 52.9 % (42.8-82.8); PLATELET COUNT 136 K/MM3 (134-434); RBC 4.85 M/mm3 (4.00-5.60); WHITE BLOOD COUNT 4.1 K/mm3 (4.0-10.0)
[2018-01-31 07:35] LABS: ANION GAP 6 MMOL/L (8-16); BILIRUBIN,TOTAL 0.3 mg/dL (0.2-1.0); BLOOD UREA NITROGEN 17 mg/dL (7-18); CALCIUM 7.5 mg/dL (8.5-10.1); CHLORIDE 108 mmol/L (98-107); CO2 27 mmol/L (21-32); GLUCOSE,RANDOM 96 mg/dL (74-106); MAGNESIUM 1.7 mg/dL (1.8-2.4); PHOSPHOROUS 3.6 mg/dL (2.5-4.9); POTASSIUM 4.1 mmol/L (3.5-5.1); SGOT/AST 62 U/L (15-37); SGPT/ALT 60 U/L (12-78); SODIUM 141 mmol/L (136-145); TOT PROT 5.7 g/dl (6.4-8.2)
[2018-01-31 07:49] LABS: ALK PHOS 40 U/L (45-117)
--- NOTE | 2018-01-31 08:36 | PN ---
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
--- NOTE | 2018-01-31 09:00 | CONS ---
DATE OF CONSULTATION: DATE OF DICTATION: 01/31/2018 REQUESTED BY: The hospitalist service. HISTORY OF PRESENT ILLNESS: This is a 42-year-old man who comes to the emergency room originally on January 28 with complaints of myalgia. On Sunday he had started feeling sore. His muscles were achy. He felt warm. His thought he was running a fever at home. He had no other associated symptoms. There was no headache. There was no rash. There was no sore throat. He was seen in the emergency room on January 28 with these complaints. He was complaining by January 28 he had severe arthralgias in his hands. He had pain in his lower back. He had pain in his inner thighs that he described as pain you would associate with doing squats. 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 He takes supplements, but he was not taking anything new. He works for the [employer] outside, but he is very strict about checking himself for insect bites and tick bites and reports he did not have anything. He has had no further fevers. He was seen in the emergency room. He had a blood culture drawn as well as a smear for Babesia. He had blood work sent for tick-borne illness and we started on doxycycline and he was discharged home. He had a rapid strep test that was negative. He returned again to the emergency room on January 30 with persistent myalgia. His arm discomfort has resolved. He continues to have some discomfort in his hands and his bilateral inner thighs. He denies any change in sensation and he feels overall like his motor strength is fine but that his main complaint is the level of pain he is having. He is eating normally. He has had no nausea or vomiting. He has no chest pain or abdominal pain. He has no dysuria. He was noted in the emergency room to have an elevated CPK, but his reports that due to his lifting whenever it is checked it runs about 2000. He denies any past medical history. He was admitted once with some atypical chest pain. He has had no surgery. He takes no medications. He does take 5 different vitamins, a protein supplement and an amino acid supplement. ALLERGIES: He is allergic to PENICILLIN. SOCIAL HISTORY: He denies any drug, alcohol or substance use. He works in the [employer] and he works outside. He also goes to the [facility]. He did yard work there on his house over the weekend. FAMILY HISTORY: Notable for coronary disease in his father. He has not been to the dentist or had a dental cleaning. REVIEW OF SYSTEMS: There is no headache or visual changes. He has no difficulty swallowing or sore throat. He denies any rash. He denies any dysuria. He denies any joint swelling or pain. PHYSICAL EXAMINATION:General: He is a pleasant man in no acute distress. Skin: Revealed no evidence of any rash. HEENT: He is normocephalic. His eyes are anicteric. He has no conjunctival hemorrhages. He has no thrush. His dentition is good. He has no pharyngitis. Neck: Supple. He has no adenopathy. Difficult to palpate due to the level of his muscle development. Heart: Regular rate and rhythm. Lungs: Clear to auscultation. Abdomen: Soft. I cannot appreciate any organomegaly. Extremities: Without edema. Vital Signs: Temperature is 98.1, he has had no fever, pulse is 62, blood pressure 126/67, respiratory rate is 18, he is saturating 97% on room air. LABORATORIES: Notable. His white count on January 28 was 5.3. Today it is 4.1, hemoglobin 14.7, platelets are 136. Sedimentation rate is 1. BUN was 17 and creatinine was 1.1 yesterday. Today BUN is 17 and creatinine is 1. His CK was 2655 and today is 1818. His AST is 62, ALT is normal at 60. BUN and creatinine are normal. His urinalysis is negative. All his tick-borne serologies are pending and Lyme appears negative. Cannon screen has been sent and is pending as well. He had blood cultures done on January 28 that are negative. He had a rapid strep screen that was negative and a malaria/Babesia smear that was negative. Chest x-ray was done as well. That is read as no infiltrates. 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 Blood cultures are negative. His fever has resolved. Suspect this is viral versus tick-borne illness. He took 4 doses of doxycycline as an outpatient. Does report feeling better at this time. Would suggest he continue on the doxycycline. Would screen him for West Nile disease as well as that can present with fever and myalgia. Cannon screen has been sent as well and will check for CMV as well. Overall I spoke with the patient. I would consider getting a neurologic exam just to make sure that there is no weakness involved. It does not appear on my exam that this is a neurologic issue and if all is well would suggest that he could go home and follow up as an outpatient. Further recommendations to follow. He could be seen in our office next week for followup. MATILDA BRODERICK M.D. [id number]
[2018-01-31] MEDS: DOXYCYCLINE INJECTION 100 MG in DEXTROSE 5%-WATER - 100 ML IVPB SCH ×2 (10:08→23:27)
--- NOTE | 2018-01-31 10:52 | PN ---
Physical Exam: SUBJECTIVE: Patient seen and examined at bedside. Reports pain in back and arms is improved, pain in thighs the same as yesterday. Able to ambulate back and forth to the bathroom. OBJECTIVE: Vital Signs Period Temp Pulse Resp BP Sys/Mcintosh Pulse Ox Last 24 Hr 97.3 F-98.7 F 61-71 16-18 126-155/67-92 97-100 GENERAL: The patient is awake, alert, and fully oriented, in no acute distress. LUNGS: CTA HEART: Regular rate and rhythm, S1, S2 ABDOMEN: Soft, nontender, nondistended, normoactive bowel sounds EXTREMITIES: 2+ pulses, warm, well-perfused, no edema. NEUROLOGICAL: Cranial nerves II through XII grossly intact. Normal speech, gait is slow Laboratory Results - last 24 hr 01/30/18 01/30/18 01/30/18 15:05 15:05 15:05 WBC 4.9 RBC 5.59 Hgb 17.1 H Hct 51.1 H MCV 91.4 MCH 30.5 MCHC 33.4 RDW 12.9 Plt Count 160 MPV 8.6 Absolute Neuts (auto) 2.8 Neutrophils % 58.5 Lymphocytes % 27.9 D Monocytes % 10.0 Eosinophils % 3.1 D Basophils % 0.5 Nucleated RBC % ESR 1 Sodium Potassium Chloride Carbon Dioxide Anion Gap BUN Creatinine Creat Clearance w eGFR Random Glucose Lactic Acid Uric Acid Calcium Phosphorus Magnesium Total Bilirubin AST ALT Alkaline Phosphatase Creatine Kinase Creatine Kinase Index CK-MB (CK-2) C-Reactive Protein < 0.3 Total Protein Albumin TSH Urine Color Urine Appearance Urine pH Ur Specific [place] Urine Protein Urine Glucose (UA) Urine Ketones Urine Blood Urine Nitrite Urine Bilirubin Urine Urobilinogen Ur Leukocyte Esterase 01/30/18 01/30/18 01/30/18 15:11 15:11 15:30 WBC RBC Hgb Hct MCV MCH MCHC RDW Plt Count MPV Absolute Neuts (auto) Neutrophils % Lymphocytes % Monocytes % Eosinophils % Basophils % Nucleated RBC % ESR Sodium 130 L Potassium 3.9 Chloride 102 Carbon Dioxide 22 Anion Gap 6 L BUN 17 Creatinine 1.1 Creat Clearance w eGFR > 60 Random Glucose 100 Lactic Acid 1.2 Uric Acid 3.3 Calcium 8.4 Phosphorus Magnesium Total Bilirubin 0.5 AST 75 H D ALT 59 H Alkaline Phosphatase 46 Creatine Kinase Creatine Kinase Index CK-MB (CK-2) C-Reactive Protein Total Protein 6.8 Albumin 4.2 TSH Urine Color Yellow Urine Appearance Clear Urine pH 5.0 D Ur Specific [place] <= 1.005 Urine Protein Negative Urine Glucose (UA) Negative Urine Ketones Negative Urine Blood Negative Urine Nitrite Negative Urine Bilirubin Negative Urine Urobilinogen 0.2 Ur Leukocyte Esterase Negative 01/30/18 01/31/18 01/31/18 16:00 06:30 06:30 WBC RBC Hgb Hct MCV MCH MCHC RDW Plt Count MPV Absolute Neuts (auto) Neutrophils % Lymphocytes % Monocytes % Eosinophils % Basophils % Nucleated RBC % ESR Sodium Potassium Chloride Carbon Dioxide Anion Gap BUN Creatinine Creat Clearance w eGFR Random Glucose Lactic Acid 0.9 Uric Acid Calcium Phosphorus Magnesium Total Bilirubin AST ALT Alkaline Phosphatase Creatine Kinase 2655 H Cancelled Creatine Kinase Index 1.9 CK-MB (CK-2) 50.8 H C-Reactive Protein Total Protein Albumin TSH Cancelled Urine Color Urine Appearance Urine pH Ur Specific [place] Urine Protein Urine Glucose (UA) Urine Ketones Urine Blood Urine Nitrite Urine Bilirubin Urine Urobilinogen Ur Leukocyte Esterase 01/31/18 01/31/18 06:30 06:30 WBC 4.1 RBC 4.85 Hgb 14.7 Hct 43.4 MCV 89.6 MCH 30.3 MCHC 33.8 RDW 14.0 Plt Count 136 MPV 8.5 Absolute Neuts (auto) 2.2 Neutrophils % 52.9 Lymphocytes % 31.5 Monocytes % 11.3 H Eosinophils % 3.9 Basophils % 0.4 Nucleated RBC % 0 ESR Sodium 141 Potassium 4.1 Chloride 108 H Carbon Dioxide 27 Anion Gap 6 L BUN 17 Creatinine 1.0 Creat Clearance w eGFR > 60 Random Glucose 96 D Lactic Acid Uric Acid Calcium 7.5 L Phosphorus 3.6 Magnesium 1.7 L Total Bilirubin 0.3 AST 62 H ALT 60 Alkaline Phosphatase 40 L Creatine Kinase 1818 H Creatine Kinase Index 1.1 CK-MB (CK-2) 21.33 H C-Reactive Protein Total Protein 5.7 L Albumin 3.0 L TSH 2.53 Urine Color Urine Appearance Urine pH Ur Specific [place] Urine Protein Urine Glucose (UA) Urine Ketones Urine Blood Urine Nitrite Urine Bilirubin Urine Urobilinogen Ur Leukocyte Esterase Active Medications Generic Name Dose Route Start Last Admin Trade Name Freq PRN Reason Stop Dose Admin Acetaminophen 650 mg 01/30/18 19:18 01/31/18 05:30 Tylenol - PO 650 mg Q6H PRN Administration PAIN LEVEL 1 - 3 Doxycycline Hyclate 100 mg/ 100 mls @ 100 mls/hr 01/30/18 18:30 01/31/18 10: 08 Dextrose IVPB 100 mls/hr BID AVIVA Administration Sodium Chloride 1,000 mls @ 150 mls/hr 01/30/18 18:30 01/30/18 19:18 Normal Saline - IV 150 mls/hr ASDIR AVIVA Administration Morphine Sulfate 2 mg 01/30/18 19:16 Morphine Injection - IVPUSH Q4H PRN PAIN LEVEL 7 - 10 Oxycodone HCl 5 mg 01/30/18 19:17 01/31/18 06:10 Roxicodone - PO 5 mg Q6H PRN Administration PAIN LEVEL 4 - 6 ASSESSMENT/PLAN: 42 year-old male with no significant PMH placed on observation for myalgias. Myalgias of uncertain etiology: rhabdo v. viral v. tickborne illness --CPK 2655--> 1818; renal function stable --continue IV fluids --repeat CPK in the am --continue doxy IV --tickborne panel; CMV; West Nile; repeat Lymes; monospot pending --no NSAIDS --ID following --neuro consult requested Dispo: continues to require observation. Full code. Visit type - Emergency Visit Emergency Visit: Yes ED Registration Date: 01/30/18 Care time: The patient presented to the Emergency Department on the above date and was hospitalized for further evaluation of their emergent condition. - New Patient This patient is new to me today: No - Critical Care Critical Care patient: No
[2018-01-31] MEDS ORDERED: MAGNESIUM 2GM/50ML STERILE WATER IVPB IVPB ONE (12:00)
--- NOTE | 2018-01-31 15:58 | EKG ---
Test Reason : Blood Pressure : / mmHG Vent. Rate : 063 BPM Atrial Rate : 063 BPM P-R Int : 190 ms QRS Dur : 114 ms QT Int : 396 ms P-R-T Axes : 054 268 -04 degrees QTc Int : 405 ms NORMAL SINUS RHYTHM RIGHT SUPERIOR AXIS DEVIATION POSSIBLE ANTERIOR INFARCT (CITED ON OR BEFORE 28-JUN-2016) ABNORMAL ECG WHEN COMPARED WITH ECG OF 28-JUN-2016 09:31, NO SIGNIFICANT CHANGE WAS FOUND Confirmed by Eva Tellez ([id number]) on 01/31/2018 3:58:11 PM Referred By: MD DUNN Confirmed By:Eva Tellez
--- NOTE | 2018-01-31 16:27 | ECHO ---
Name: BARNETTRON SWANN Exam:Adult Echocardiogram Study Date: 01/31/2018 08:21 AM Age: 42 yrs Reason For Study: NUMBNESS Height: 67 in Weight: 209 lb BSA: 2.1 m2 MMode/2D Measurements & Calculations IVSd: 1.0 cm Ao root diam: 3.5 cm LVIDd: 5.8 cm LA dimension: 3.0 cm LVIDs: 3.6 cm LVPWd: 1.2 cm EDV(Teich): 164.1 ml ESV(Teich): 55.4 ml Doppler Measurements & Calculations MV E max shemar: 74.4 cm/sec MV A max shemar: 48.6 cm/sec MV E/A: 1.5 Left Ventricle The left ventricle is borderline dilated. Ejection Fraction = 60%. No regional wall motion abnormalit ies noted. Right Ventricle The right ventricle is normal in size and function. Atria The left atrial size is normal. Mitral Valve There is moderate mitral valve thickening. There is mild mitral regurgitation. Tricuspid Valve The tricuspid valve is not well visualized, but is grossly normal. There is mild tricuspid regurgitat ion. Aortic Valve The aortic valve is trileaflet. No hemodynamically significant valvular aortic stenosis. Trace aortic regurgitation. Pulmonic Valve The pulmonic valve is not well visualized. There is no pulmonic valvular regurgitation. Great Vessels Normal IVC size and contractility. Pericardium/Pleura There is no pericardial effusion. Interpretation Summary The left ventricle is borderline dilated. Ejection Fraction = 60%. No regional wall motion abnormalities noted. The right ventricle is normal in size and function. The left atrial size is normal. There is mild mitral regurgitation. Trace aortic regurgitation. MD Jamey Pringle 01/31/2018 04:26 PM
[2018-01-31] MEDS: SODIUM CHLORIDE 1,000 ML IV SCH (18:07)
--- NOTE | 2018-01-31 21:05 | CON.NEURO ---
Consult Consult Specialty:: NEUROLOGY-CAIT TANG - History of Present Illness History of Present Illness: 42 year-old male with no significant PMH presents to the ED with a complaint of severe muscle aches and pain in back, upper and lower extremities. Patient reports about a week ago he had a few episodes of back pain which resolved. Patient works out 6/7 days a week, weight lifting, 2 hours per session. He was able to do his workouts through Thursday 01/25. He went to the [facility] over the weekend. On Sunday he woke up with severe back pain. He had subjective fever and felt very fatigued. On Sunday, the pain progressed to his upper extremities , and then to his lower extremities. He was unable to squeeze a toothpaste tube secondary to pain and was dropping things. He was seen in the ED and blood work was done. He was sent home with a prescription for doxycline. Lyme test was negative. The pain continued to worsen to where patient had difficulty walking and he returned to the ED today. Patient works for the [employer] and travels on some weekends to the [facility]. Patient takes vitamins and workout supplements. No recent steroid use. Denies chest pain, shortness of breath, cough; abdominal pain, nausea, vomiting , diarrhea; headache, photophobia, neck pain/stiffness; tick bites (he checks regularly), rash; boss told him that a co worker has similar symptoms and is hospitalized for Lyme disease ER course was notable for: (1) CPK 2655 (2) Na 130 (3) NS 1.5L Today reports he feels better, denies weakness except slight hand production cell leader weakness in left hand and minimal achiness upon movement in thighs. - Alcohol/Substance Use Hx Alcohol Use: Yes - Smoking History Smoking history: Former smoker Have you smoked in the past 12 months: No Aproximately how many cigarettes per day: 0 If you are a former smoker, when did you quit?: 10 YEARS AGO Home Medications - Allergies Allergies/Adverse Reactions: Allergies Allergy/AdvReac Type Severity Reaction Status Date / Time Penicillins Allergy Intermediate Verified 01/30/18 14:40 - Home Medications Home Medications: Ambulatory Orders Doxycycline Hyclate [Vibramycin -] 100 mg PO BID #20 capsule 01/28/18 Ibuprofen [Motrin -] 600 mg PO TID 01/28/18 Physical Exam-Neuro Vital Signs: Vital Signs Temperature 97.9 F 01/31/18 18:00 Pulse Rate 62 01/31/18 18:00 Respiratory Rate 19 01/31/18 18:00 Blood Pressure 145/75 01/31/18 18:00 O2 Sat by Pulse Oximetry (%) 99 01/31/18 18:00 Labs: CBC, BMP 01/31/18 06:30 01/31/18 06:30 - Neuro Exam DTR's: 2+ Left Bicep, 2+ Right Bicep, 2+ Left Tricep, 2+ Right Tricep, 2+ Left Brachioradialis, 2+ Right Brachioradialis, 2+ Left Achilles, 2+ Right Achilles Motor Strength: 5/5: Left Arm, Right Arm, Left Leg, Right Leg (left hand production cell leader-5- /5) Assessment/Plan Pt. with rhabdomyolysis, likely has an underlying myopathy possibly, o/e only has slight left hand production cell leader weakness agree with rx. for lyme. Suggest:Pls send repeat CPK, aldolase, ESR MRI Cspine(bilat hand weakness noted yesterday). If symptoms persist will need a tap to r/o neurolyme. Will set up appt.for EMGs as outpt. after 02/09/18 at my office. Thank you, Ian Werner MD
[2018-01-31] MEDS ORDERED: PT OWN MED DRAWER 7, Y5N ONE (23:19)
[2018-02-01 06:41] VITALS: BP 158/50; PULSE 55; TEMP 97.9
[2018-02-01] MEDS ORDERED: PT OWN MED DRAWER 7, Y5N ONE (09:05)
--- NOTE | 2018-02-01 09:26 | PN ---
Progress Note, Physician History of Present Illness: Awake, alert Seated in bed C/O bilateral medial thigh discomfort, otherwise comfortable No fever WBC pending Tick serologies pending Throat c/s grp A strep - Current Medication List Current Medications: Active Medications Acetaminophen (Tylenol -) 650 mg PO Q6H PRN PRN Reason: PAIN LEVEL 1 - 3 Last Admin: 01/31/18 23:26 Dose: 650 mg Doxycycline Hyclate 100 mg/ (Dextrose) 100 mls @ 100 mls/hr IVPB BID AVIVA Last Admin: 01/31/18 23:27 Dose: 100 mls/hr Sodium Chloride (Normal Saline -) 1,000 mls @ 150 mls/hr IV ASDIR AVIVA Last Admin: 01/31/18 18:07 Dose: 150 mls/hr Morphine Sulfate (Morphine Injection -) 2 mg IVPUSH Q4H PRN PRN Reason: PAIN LEVEL 7 - 10 Oxycodone HCl (Roxicodone -) 5 mg PO Q6H PRN PRN Reason: PAIN LEVEL 4 - 6 Last Admin: 01/31/18 23:21 Dose: 5 mg - Objective Vital Signs: Vital Signs Temperature 97.9 F 02/01/18 06:40 Pulse Rate 55 L 02/01/18 06:40 Respiratory Rate 18 02/01/18 08:06 Blood Pressure 158/50 02/01/18 06:40 O2 Sat by Pulse Oximetry (%) 99 02/01/18 08:06 Constitutional: Yes: No Distress Eyes: Yes: Conjunctiva Clear Cardiovascular: Yes: Regular Rate and Rhythm, S1, S2 Respiratory: Yes: CTA Bilaterally Gastrointestinal: Yes: Normal Bowel Sounds, Soft. No: Tenderness Edema: No Labs: CBC, BMP 01/31/18 06:30 01/31/18 06:30 Assessment/Plan ? tick/ mosquito - related illness + throat c/s grp A strep Continue doxycycline pending serologies Complete 14d course Z-anne for tx + grpA strep throat c/s in this PCN allergic pt
[2018-02-01] MEDS: DOXYCYCLINE INJECTION 100 MG in DEXTROSE 5%-WATER - 100 ML IVPB SCH (09:51)
[2018-02-01 10:21] LABS: CMV IgM < 30.0 AU/mL (0.0-29.9)
--- NOTE | 2018-02-01 11:26 | DS ---
Physical Exam: SUBJECTIVE: Patient seen and examined. Muscle aches mostly resolved, residual inner thigh pain. OBJECTIVE: Vital Signs Period Temp Pulse Resp BP Sys/Mcintosh Pulse Ox Last 24 Hr 97.8 F-98.8 F 55-62 18-19 145-177/50-79 97-99 PHYSICAL EXAM GENERAL: The patient is awake, alert, and fully oriented, in no acute distress. HEAD: Normal with no signs of trauma. EYES: PERRL, extraocular movements intact, sclera anicteric, conjunctiva clear. ENT: Ears normal, nares patent, oropharynx clear without exudates, moist mucous membranes. NECK: Trachea midline, full range of motion, supple. LUNGS: Breath sounds equal, clear to auscultation bilaterally, no wheezes, no crackles, no accessory muscle use. HEART: Regular rate and rhythm, S1, S2 without murmur, rub or gallop. ABDOMEN: Soft, nontender, nondistended, normoactive bowel sounds, no guarding, no rebound, no hepatosplenomegaly, no masses. EXTREMITIES: 2+ pulses, warm, well-perfused, no edema. NEUROLOGICAL: Cranial nerves II through XII grossly intact. Normal speech, gait not observed. PSYCH: Normal mood, normal affect. SKIN: Warm, dry, normal turgor, no rashes or lesions noted. LABS Laboratory Results - last 24 hr 01/30/18 01/30/18 01/31/18 15:05 15:05 11:15 Creatine Kinase Rheumatoid Arth Biomark < 10.0 CMV IgG Ab < 0.60 CMV IgM Ab < 30.0 Monoscreen Negative 02/01/18 10:30 Creatine Kinase 1249 H Rheumatoid Arth Biomark CMV IgG Ab CMV IgM Ab Monoscreen HOSPITAL COURSE: Date of Admission:01/30/18 Date of Discharge: 02/01/18 Pre hospital course 42 year-old male with no significant PMH presents to the ED with a complaint of severe muscle aches and pain in back, upper and lower extremities. Patient reports about a week ago he had a few episodes of back pain which resolved. Patient works out 6/7 days a week, weight lifting, 2 hours per session. He was able to do his workouts through Thursday 01/25. He went to the [facility] over the weekend. On Sunday he woke up with severe back pain. He had subjective fever and felt very fatigued. On Sunday, the pain progressed to his upper extremities , and then to his lower extremities. He was unable to squeeze a toothpaste tube secondary to pain and was dropping things. He was seen in the ED and blood work was done. He was sent home with a prescription for doxycline. Lyme test was negative. The pain continued to worsen to where patient had difficulty walking and he returned to the ED today. Patient works for the [employer] and travels on some weekends to the [facility]. Patient takes vitamins and workout supplements. No recent steroid use. Denies chest pain, shortness of breath, cough; abdominal pain, nausea, vomiting , diarrhea; headache, photophobia, neck pain/stiffness; tick bites (he checks regularly), rash; boss told him that a co worker has similar symptoms and is hospitalized for Lyme disease ER course was notable for: (1) CPK 2655 (2) Na 130 (3) NS 1.5L Subsequent hospital course Rhabdomyolysis --CPK 2655--> 1818-->1249 with aggressive IV fluids; significant symptom improvement, myalgias almost resolved; renal function remained stable r/o tickborne etiology --initial Lyme was negative, repeat pending --tickborne serolgies pending --treated with IV doxy and discharged with PO doxy x 14 days --f/u with Dr. Muhammad in one week Minutes to complete discharge: 35 Discharge Summary Reason For Visit: RHABDOMYLOSIS Current Active Problems Myalgia (Acute) Rhabdomyolysis (Acute) Condition: Improved - Instructions Diet, Activity, Other Instructions: A prescription has been sent to your pharmacy for doxycline. Take this medication for 2 weeks. You should follow up with Dr. Muhammad in one week. Referrals: Giancarlo Muhammad MD [Staff Physician] - 1 Week Disposition: HOME - Home Medications Comprehensive Discharge Medication List: Ambulatory Orders Doxycycline Hyclate [Vibramycin -] 100 mg PO BID #20 capsule 01/28/18 Ibuprofen [Motrin -] 600 mg PO TID 01/28/18 This patient is new to me today: No Emergency Visit: Yes ED Registration Date: 01/30/18 Care time: The patient presented to the Emergency Department on the above date and was hospitalized for further evaluation of their emergent condition. Critical Care patient: No - Discharge Referral Referred to [facility] No
[2018-02-04 14:22] LABS: WEST NILE VIRUS AB SERUM,IGM Negative (Negative)
== END 2018-02-01 11:52 | disposition home or self-care (01) ==
LOC: FER 14:38 → FM/S 18:40
PROVIDERS: ADMIT Internal Medicine; ATTEND Nurse Practitioner Acute Care
PROC: 3E03329 Introduction of Other Anti-infective into Peripheral Vein, Percutaneous Approach (ICD-10-PCS; principal; 2018-01-30)
PROC: 3E033GC Introduction of Other Therapeutic Substance into Peripheral Vein, Percutaneous Approach (ICD-10-PCS; 2018-01-30)
PROC: 3E0337Z Introduction of Electrolytic and Water Balance Substance into Peripheral Vein, Percutaneous Approach (ICD-10-PCS; 2018-01-30)
DX: M62.82 Rhabdomyolysis (principal); M79.1 Myalgia; Z88.0 Allergy status to penicillin; Z87.891 Personal history of nicotine dependence
CPT/HCPCS: 36415; 71046-TC-FY; 80053; 81003; 82550; 82553; 82930; 83605; 83735; 84100; 84443; 84550; 85025; 85651; 86038; 86140; 86308; 86431; 86618; 86644; 86645; 86666; 86788; 86789; 87040; 87086; 87207; 87804; 93005; 93306-TC; 99284-25; G0378; J7030

== ENCOUNTER 2019-05-26 07:12 | Emergency (ER) | payer BC ==
[2019-05-26 07:20] VITALS: BP 158/99; PULSE 84; TEMP 98.1; BMI 33.2
--- NOTE | 2019-05-26 07:24 | PDOC ---
History of Present Illness - General Chief Complaint: Eye Problem Stated Complaint: PINK EYE Time Seen by Provider: 05/26/19 07:13 - History of Present Illness Initial Comments: 05/26/19 07:25 44 M presenting with 1 day of L eye redness and itching. Pt states that he began to feel some itching and irritation last night with watering of his L eye. This morning, he awoke with crusting and discharge from his L eye. Denies any blurred vision. Denies F/C. Endorses nasal congestion as well. Pt notes several family members with URI symptoms currently. Pt denies pain in his eye or pain with EOM. Past History - Past Medical History Allergies/Adverse Reactions: Allergies Allergy/AdvReac Type Severity Reaction Status Date / Time Penicillins Allergy Intermediate Verified 01/30/18 14:40 Home Medications: Ambulatory Orders Olopatadine HCl [Pataday] 1 drop OS DAILY #1 bottle 05/26/19 Polymyxin B Sulfate/Tmp [Polytrim Opthalmic Solution -] 2 drop OS QID #1 bottle 05/26/19 COPD: No - Immunization History Immunization Up to Date: Yes - Psycho Social/Smoking Cessation Hx Smoking Status: Yes Smoking History: Never smoked Have you smoked in the past 12 months: No Number of Cigarettes Smoked Daily: 0 If you are a former smoker, when did you quit?: 10 YEARS AGO 'Breaking Loose' booklet given: 08/14/14 Hx Alcohol Use: Yes Drug/Substance Use Hx: No Substance Use Type: Alcohol Hx Substance Use Treatment: No Review of Systems - Review of Systems Comments:: 05/26/19 07:26 "GENERAL/CONSTITUTIONAL: No fever or chills. No weakness. HEAD, EYES, EARS, NOSE AND THROAT: + L eye redness and irritation, No change in vision. No ear pain or discharge. No sore throat. CARDIOVASCULAR: No chest pain, no shortness of breath, no loss of consciousness RESPIRATORY: No cough, wheezing, or hemoptysis. GASTROINTESTINAL: No nausea, vomiting, diarrhea or constipation. GENITOURINARY: No dysuria, frequency, or change in urination. MUSCULOSKELETAL: No joint or muscle swelling or pain. No neck or back pain. SKIN: No rash NEUROLOGIC: No vertigo, no change in strength/sensation. ENDOCRINE: No increased thirst. No abnormal weight change. HEMATOLOGIC/LYMPHATIC: No anemia, easy bleeding, or history of blood clots. ALLERGIC/IMMUNOLOGIC: No hives or skin allergy. *Physical Exam - Vital Signs Last Vital Signs Temp Pulse Resp BP Pulse Ox 98.1 F 84 15 158/99 100 05/26/19 07:13 05/26/19 07:13 05/26/19 07:13 05/26/19 07:13 05/26/19 07:13 - Physical Exam 05/26/19 07:27 "GENERAL: Awake, alert, and fully oriented, in no acute distress. HEAD: No signs of trauma EYES: OS conjunctivitis, no discharge, PERRLA, EOMI, sclera anicteric ENT: Auricles normal inspection, hearing grossly normal, nares patent, oropharynx clear without exudates. Moist mucosa NECK: Nontender, no stepoffs, Normal ROM, supple, no lymphadenopathy, JVD, or masses LUNGS: Breath sounds equal, clear to auscultation bilaterally. No wheezes, and no crackles HEART: Regular rate and rhythm, normal S1 and S2, no murmurs, rubs or gallops ABDOMEN: Soft, nontender, normoactive bowel sounds. No guarding, no rebound. No masses EXTREMITIES: Normal range of motion, no edema. No clubbing or cyanosis. No cords, erythema, or tenderness NEUROLOGICAL: Cranial nerves II through XII intact. 5/5 strength and sensation in all extremities, Normal speech, normal gait, normal cerebellar function SKIN: Warm, Dry, normal turgor, no rashes or lesions noted. Medical Decision Making - Medical Decision Making 05/26/19 07:27 44 M with L eye conjunctivitis. No systemic symptoms. No evidence of preseptal cellulitis or orbital cellulitis. Visual acuity wnl. - Abx drops - Antihistamine drops for itching Pt is well appearing, with normal vitals. Clinically stable for DC at this time. I discussed the physical exam findings, ancillary test results and final diagnoses with the patient. I answered all of the patient's questions. The patient was satisfied with the care received and felt comfortable with the discharge plan and treatment plan. The patient agrees to follow up with the primary care physician within 24-72 hours. Discharge - Discharge Information Problems reviewed: Yes Clinical Impression/Diagnosis: Conjunctivitis Condition: Good Disposition: HOME - Additional Discharge Information Prescriptions: Olopatadine HCl [Pataday] 1 drop OS DAILY #1 bottle Polymyxin B Sulfate/Tmp [Polytrim Opthalmic Solution -] 2 drop OS QID #1 bottle - Follow up/Referral - Patient Discharge Instructions Patient Printed Discharge Instructions: DI for Conjunctivitis Additional Instructions: Use the antibiotic (polytrim) eye drops 4 times a day for 5 days to treat your pink eye. Use the antihistamine (pataday) eye drops once a day as needed for itching. If you experience worsening redness, crusting, blurry vision, fevers, pain in your eye, or any other concerning symptoms, return to the ER immediately. Otherwise, follow up with your primary doctor in 1-2 weeks. - Post Discharge Activity Work/Back to School Note: Back to Work
== END 2019-05-26 07:30 | disposition home or self-care (01) ==
LOC: FER 07:12
DX: H10.9 Unspecified conjunctivitis (principal); Z88.0 Allergy status to penicillin; Z87.891 Personal history of nicotine dependence
CPT/HCPCS: 99281-25

== ENCOUNTER 2020-02-03 10:30 | Emergency (ER) | payer BC, OTHER ==
[2020-02-03] MEDS ORDERED: ACETAMINOPHEN 325 MG TABLET (FP) PO ONE (10:36)
[2020-02-03] MEDS ORDERED: KETOROLAC TROMETHAMINE 60 MG/2 ML VIAL IM ONE (10:36)
[2020-02-03 10:40] VITALS: BP 156/90; PULSE 79; TEMP 98.6; BMI 34.4
[2020-02-03] MEDS ORDERED: KETOROLAC TROMETHAMINE 60 MG/2 ML VIAL ONE (10:41)
[2020-02-03] MEDS ORDERED: ACETAMINOPHEN 325 MG TABLET (FP) ONE (10:41)
--- NOTE | 2020-02-03 10:43 | PDOC ---
History of Present Illness - General Chief Complaint: Injury Stated Complaint: RIGHT KNEE INJURY Time Seen by Provider: 02/03/20 10:35 History Source: Patient Exam Limitations: No Limitations - History of Present Illness Initial Comments: 02/03/20 10:37 44y M no known pmhx presents with R leg pain. Pt was at work on a [employer]ied [employer] that slid down a hill striking his medial R knee/leg. No associated numbness/tingling/weakness. No other head injury or other traumas. Pt has been unable to weight bear on it since the injury. Past History - Medical History Allergies/Adverse Reactions: Allergies Allergy/AdvReac Type Severity Reaction Status Date / Time Penicillins Allergy Intermediate Verified 02/03/20 10:40 Home Medications: Ambulatory Orders Ibuprofen 600 mg PO TID PRN #30 tablet 02/03/20 COPD: No CHF: No - Immunization History Immunization Up to Date: Yes - Psycho-Social/Smoking History Smoking Status: Yes Smoking History: Never smoked Have you smoked in the past 12 months: No Number of Cigarettes Smoked Daily: 0 If you are a former smoker, when did you quit?: 2004 'Breaking Loose' booklet given: 08/14/14 Review of Systems - Review of Systems Able to Perform ROS?: Yes Comments:: 02/03/20 10:43 Musculskelatal - +R knee/leg pain no reported back pain, joint swelling skin - +bruising/abrasion neurological: no reported numbness, focal weakness, tingling, hematologic: no reported easy bruising, easy bleeding *Physical Exam - Physical Exam 02/03/20 10:45 GENERAL: The patient is awake, alert, and fully oriented, Nontoxic - in no acute distress. HEAD: Normocephalic, atraumatic. EXTREMITIES: mild diffuse tenderness to medial aspect of R knee with abrausions/ecchyomsis NEUROLOGICAL: sensation intact distally, normal flexion/extension of R knee/ankles ED Treatment Course - RADIOLOGY Radiology Studies Ordered: Category Date Time Status KNEE 3 POS-RIGHT [RAD] Stat Radiology 02/03/20 10:36 Ordered LEG TIB/FIB-RIGHT [RAD] Stat Radiology 02/03/20 10:36 Ordered Medical Decision Making - Medical Decision Making 02/03/20 10:46 analgesia xray to r/o fx bacitracin to abrasions 02/03/20 11:50 xrays neg for fx pt ambulating/weight bearing will dc the pt on knee immobilizer will have pt fu with ortho for reeevaluation return precautions were discussed Discharge - Discharge Information Problems reviewed: Yes Clinical Impression/Diagnosis: Knee contusion Qualifiers: Encounter type: initial encounter Laterality: right Qualified Code(s): S80.01XA - Contusion of right knee, initial encounter Abrasion of knee, right Qualifiers: Encounter type: initial encounter Qualified Code(s): S80.211A - Abrasion, right knee, initial encounter Condition: Improved Disposition: HOME - Admission No - Additional Discharge Information Prescriptions: Ibuprofen 600 mg PO TID PRN #30 tablet PRN Reason: Pain - Follow up/Referral Referrals: Americo March [Non Staff, Medical] - - Patient Discharge Instructions Patient Printed Discharge Instructions: DI for Knee Pain Additional Instructions: Return to the emergency department immediately with ANY new, persistent or worsening symptoms. keep the wound clean. Apply bacitracin to the wound twice daily. You MUST call and follow up with an orthopedist for further evaluation of your symptoms if your pain does not improve within 3-4 days. Results were discussed with you. Please make sure your doctor reviews the results of your emergency evaluation. Your Emergency Department visit is not complete without a follow up with your doctor. Print Language: KAZAKH - Post Discharge Activity Work/Back to School Note: Back to Work
[2020-02-03] MEDS ORDERED: BACITRACIN 15 GM TUBE TOPICAL OINTMENT TP ONE (12:01)
== END 2020-02-03 12:08 | disposition home or self-care (01) ==
LOC: FER 10:30
PROC: 3E0234Z Introduction of Serum, Toxoid and Vaccine into Muscle, Percutaneous Approach (ICD-10-PCS; principal; 2020-02-03)
DX: S80.01XA Contusion of right knee, initial encounter (principal); S80.211A Abrasion, right knee, initial encounter
CPT/HCPCS: 73562-TC-RT-FY; 73590-TC-RT-FY; 99284-25

== ENCOUNTER 2020-03-16 14:22 | Emergency (ER) | payer BC ==
--- NOTE | 2020-03-16 14:35 | TELE ---
HPI Do you have fever,cough or shortness of breath?: No - General Reason For Visit: VIRTUAL VISIT History Source: Patient Past History - Medical History Allergies/Adverse Reactions: Allergies Allergy/AdvReac Type Severity Reaction Status Date / Time Penicillins Allergy Intermediate Verified 02/03/20 10:40 Home Medications: Ambulatory Orders Ibuprofen 600 mg PO TID PRN #30 tablet 02/03/20 COPD: No CHF: No - Immunization History Immunization Up to Date: Yes - Psycho-Social/Smoking History Smoking Status: Yes Smoking History: Never smoked Have you smoked in the past 12 months: No Number of Cigarettes Smoked Daily: 0 If you are a former smoker, when did you quit?: 2004 'Breaking Loose' booklet given: 08/14/14 Review of Systems - Review of Systems Constitutional: No: Fever HEENTM: Yes: Throat Pain *Physical Exam - Physical Exam Respiratory/Chest: negative: Respiratory Distress Discharge Diagnosis at time of Disposition: Telehealth encounter for confirmed COVID-19 - Referrals - Patient Instructions - Discharge Disposition: HOME Condition at time of Disposition: Stable
== END 2020-03-16 14:35 | disposition home or self-care (01) ==
LOC: JVIRT 14:22
DX: Z11.59 Encounter for screening for other viral diseases (principal)
CPT/HCPCS: C9803; Q3014-GT; U0003

== ENCOUNTER 2020-07-29 18:40 | Emergency (ER) | payer BC, OTHER ==
[2020-07-29 18:50] VITALS: BP 154/83; PULSE 99; TEMP 99; BMI 34.4
[2020-07-29] MEDS ORDERED: KETOROLAC TROMETHAMINE 30 MG/1 ML VIAL IM ONE (18:56)
[2020-07-29] MEDS ORDERED: KETOROLAC TROMETHAMINE 30 MG/1 ML VIAL ONE (18:57)
[2020-07-29] MEDS ORDERED: LIDO 2%/EPI 1:200000 PRESRVFRE (20 ML SDVIAL) ONE (19:46)
== END 2020-07-29 20:15 | disposition home or self-care (01) ==
LOC: FER 18:40
PROC: 3E0233Z Introduction of Anti-inflammatory into Muscle, Percutaneous Approach (ICD-10-PCS; principal; 2020-07-29)
DX: S01.01XA Laceration without foreign body of scalp, initial encounter (principal); S06.0X0A Concussion without loss of consciousness, initial encounter
CPT/HCPCS: 70450-TC; 99284-25

== ENCOUNTER 2020-08-05 11:53 | Emergency (ER) | payer OTHER ==
[2020-08-05 12:24] VITALS: BP 134/72; PULSE 89; TEMP 99; BMI 32.6
== END 2020-08-05 13:00 | disposition home or self-care (01) ==
LOC: FER 11:53
DX: Z48.02 Encounter for removal of sutures (principal)
CPT/HCPCS: 99281-25

== ENCOUNTER 2020-08-22 17:14 | Emergency (ER) | payer OTHER, BC ==
[2020-08-22 17:25] VITALS: BP 138/97; PULSE 60; TEMP 98.8; BMI 38.0
[2020-08-22] MEDS ORDERED: LACTATED RINGERS SOLUTION 1000 ML INFUS.BAG IV ONE (17:27)
[2020-08-22] MEDS ORDERED: METOCLOPRAMIDE HCL INJECTION 10 MG/2 ML VIAL IVPUSH ONE (17:27)
[2020-08-22] MEDS ORDERED: ACETAMINOPHEN 1000 MG/100 ML VIAL (NON FORMULARY) IVPB ONE (17:27)
[2020-08-22] MEDS ORDERED: METOCLOPRAMIDE HCL INJECTION 10 MG/2 ML VIAL ONE (17:52)
[2020-08-22] MEDS ORDERED: ACETAMINOPHEN INJECTION 100 ML IVPB ONE (17:52)
[2020-08-22 18:21] LABS: BASO % 1.1 % (0-2.0); EOS % 8.7 % (0-4.5); HEMOGLOBIN 15.7 GM/dl (11.7-16.9); LYMPH % 26.9 % (8-40); MCH 30.1 pg (25.7-33.7); MCHC 33.4 g/dl (32.0-35.9); MEAN CELL VOLUME 90.3 fl (80-96); MEAN PLT VOLUME 8.1 fl (7.5-11.1); NEUT % 56.3 % (42.8-82.8); PLATELET COUNT 206 K/MM3 (134-434); WHITE BLOOD COUNT 6.6 K/mm3 (4.0-10.8)
[2020-08-22 18:26] LABS: ALBUMIN 4.6 g/dl (3.4-5.0); BILIRUBIN,TOTAL 0.8 mg/dl (0.2-1); CALCIUM 9.4 mg/dl (8.5-10); POTASSIUM 4.2 mmol/L (3.5-5.1); TOT PROT 7.4 g/dl (6.4-8.2)
[2020-08-22] MEDS ORDERED: KETOROLAC TROMETHAMINE 15 MG/ML VIAL IVPUSH ONE (18:46)
[2020-08-22] MEDS ORDERED: KETOROLAC TROMETHAMINE 30 MG/1 ML VIAL ONE (18:48)
== END 2020-08-22 19:00 | disposition home or self-care (01) ==
LOC: FER 17:14
PROC: 3E033NZ Introduction of Analgesics, Hypnotics, Sedatives into Peripheral Vein, Percutaneous Approach (ICD-10-PCS; principal; 2020-08-22)
PROC: 3E033GC Introduction of Other Therapeutic Substance into Peripheral Vein, Percutaneous Approach (ICD-10-PCS; 2020-08-22)
PROC: 3E0333Z Introduction of Anti-inflammatory into Peripheral Vein, Percutaneous Approach (ICD-10-PCS; 2020-08-22)
DX: R51.9 Headache, unspecified (principal)
CPT/HCPCS: 36415; 70450-TC; 80053; 85025; 86769; 99285-25; J0131

== ENCOUNTER 2021-01-24 22:47 | Emergency (ER) | payer BC, OTHER ==
[2021-01-24 22:52] VITALS: BP 129/73; PULSE 79; TEMP 98; BMI 34.2
[2021-01-24] MEDS ORDERED: chlorproMAZINE HCL 25 MG/1 ML AMP ONE (23:06)
== END 2021-01-24 23:33 | disposition home or self-care (01) ==
LOC: FER 22:47
PROC: 3E023GC Introduction of Other Therapeutic Substance into Muscle, Percutaneous Approach (ICD-10-PCS; principal; 2021-01-24)
DX: R06.6 Hiccough (principal)
CPT/HCPCS: 99284-25

== ENCOUNTER 2021-07-17 07:39 | Emergency (ER) | payer BC ==
[2021-07-17] MEDS ORDERED: DIPHTH,PERTUSS(ACELL),TET 0.5 ML DISP.SYRIN IM ONE ×2 (07:57→09:04)
[2021-07-17 08:20] LABS: BASO % 0.5 % (0-2.0); EOS % 0.8 % (0-4.5); HEMOGLOBIN 16.1 GM/dL (11.7-16.9); MCH 29.9 pg (25.7-33.7); MCHC 34.3 g/dl (32.0-35.9); MEAN CELL VOLUME 87.1 fl (80-96); MEAN PLT VOLUME 7.1 fl (7.5-11.1); MONO % 6.1 % (3.8-10.2); NEUT % 76.6 % (42.8-82.8); PLATELET COUNT 229 10^3/uL (134-434); RBC 5.39 M/mm3 (4.00-5.60); RDW 15.4 % (11.9-15.9); WHITE BLOOD COUNT 7.2 K/mm3 (4.0-10.0)
[2021-07-17] MEDS ORDERED: BACITRACIN 15 GM TUBE TOPICAL OINTMENT ONE (08:43)
[2021-07-17 08:53] VITALS: BP 107/45; PULSE 96; TEMP 98.7; BMI 34.2
== END 2021-07-17 09:27 ==
LOC: JER 07:39
PROC: 0HQ0XZZ Repair Scalp Skin, External Approach (ICD-10-PCS; principal; 2021-07-17)
PROC: 3E0234Z Introduction of Serum, Toxoid and Vaccine into Muscle, Percutaneous Approach (ICD-10-PCS; 2021-07-17)
DX: S01.01XA Laceration without foreign body of scalp, initial encounter (principal); W01.0XXA Fall on same level from slipping, tripping and stumbling without subsequent striking against object, initial encounter
CPT/HCPCS: 36415; 70450-TC; 72125-TC; 85025; 90715; 99284-25

== ENCOUNTER 2021-09-04 13:29 | Emergency (ER) | payer BC ==
[2021-09-04 13:41] VITALS: BP 130/80; PULSE 98; TEMP 99; BMI 32.6
[2021-09-04 14:33] LABS: INR 1.15 (0.83-1.09); PROTHROMBIN TIME (PATIENT) 13.2 SEC (9.7-13.0)
[2021-09-04 14:36] LABS: ACTIVATED PTT 40.3 SECONDS (25.2-36.5)
[2021-09-04] MEDS ORDERED: ALBUTEROL SO4 2.5/IPRATROPIUM 0.5 INH SOL 3 ML VIAL.NEB. NEB ONE ×2 (14:36→14:40)
[2021-09-04] MEDS ORDERED: ACETAMINOPHEN INJECTION 100 ML IVPB ONE (14:36)
[2021-09-04 14:40] LABS: ALBUMIN 4.5 g/dl (3.4-5.0); BILIRUBIN,TOTAL 0.5 mg/dl (0.2-1); CALCIUM 9.2 mg/dl (8.5-10); CREATININE 1.4 mg/dl (0.55-1.3); TOT PROT 7.4 g/dl (6.4-8.2)
[2021-09-04] MEDS ORDERED: ACETAMINOPHEN 1000 MG/100 ML BAG IVPB ONE (14:41)
[2021-09-04] MEDS ORDERED: SODIUM CHLORIDE 0.9% 1000 ML INFUS.BAG IV ONE (14:52)
[2021-09-04 15:02] LABS: BASO % 0.6 % (0-2.0); EOS % 0.6 % (0-4.5); HEMATOCRIT 44.5 % (35.4-49); HEMOGLOBIN 15.1 GM/dL (11.7-16.9); LYMPH % 11.8 % (8-40); MCH 30.2 pg (25.7-33.7); MCHC 33.9 g/dl (32.0-35.9); MEAN CELL VOLUME 89.1 fl (80-96); MEAN PLT VOLUME 7.9 fl (7.5-11.1); MONO % 14.6 % (3.8-10.2); NEUT % 72.4 % (42.8-82.8); PLATELET COUNT 173 10^3/uL (134-434); RDW 14.3 % (11.9-15.9)
[2021-09-04] MEDS ORDERED: ALBUTEROL SO4 HFA INHALER IH ONE (16:18)
== END 2021-09-04 16:56 | disposition home or self-care (01) ==
LOC: FER 13:29
PROC: 3E033GC Introduction of Other Therapeutic Substance into Peripheral Vein, Percutaneous Approach (ICD-10-PCS; principal; 2021-09-04)
PROC: 3E0F7GC Introduction of Other Therapeutic Substance into Respiratory Tract, Via Natural or Artificial Opening (ICD-10-PCS; 2021-09-04)
DX: J40 Bronchitis, not specified as acute or chronic (principal); B34.9 Viral infection, unspecified
CPT/HCPCS: 36415; 71046-TC-FY; 71275-TC; 80053; 85025; 85610; 85730; 93005; 99285-25; Q9967

== ENCOUNTER 2021-09-13 20:19 | Emergency (ER) | payer BC ==
[2021-09-13 20:30] VITALS: BP 137/86; PULSE 94; TEMP 98; BMI 32.5
== END 2021-09-13 21:39 | disposition home or self-care (01) ==
LOC: FER 20:19
DX: H61.22 Impacted cerumen, left ear (principal)
CPT/HCPCS: 99281-25

== ENCOUNTER 2022-01-23 13:47 | Emergency (ER) | payer BC ==
[2022-01-23 14:10] VITALS: BP 158/104; PULSE 75; RESP 18; TEMP 97.7; BMI 33.5
[2022-01-23 15:08] LABS: HEMATOCRIT 48.8 % (35.4-49); MCH 30.6 pg (25.7-33.7); MCHC 34.9 g/dl (32.0-35.9); MEAN CELL VOLUME 87.6 fl (80-96); MEAN PLT VOLUME 7.7 fl (7.5-11.1); PLATELET COUNT 141.2 10^3/uL (134-434); RBC 5.57 10^6/uL (4.00-5.60); WHITE BLOOD COUNT 3.4 10^3/uL (4.0-10.8)
[2022-01-23 15:17] LABS: ALBUMIN 4.2 g/dl (3.4-5.0); BILIRUBIN,TOTAL 0.7 mg/dl (0.2-1); CALCIUM 9.6 mg/dl (8.5-10); TOT PROT 6.9 g/dl (6.4-8.2)
[2022-01-23 17:44] LABS: PLATELET ESTIMATE SLT DECREASE
[2022-01-26 16:08] LABS: BABESIA MICROTI ANTIBODY IGG 1:20 (Neg:<1:10); BABESIA MICROTI ANTIBODY IGM <1:10 (Neg:<1:10)
== END 2022-01-23 14:47 | disposition home or self-care (01) ==
LOC: FER 13:47
DX: R21 Rash and other nonspecific skin eruption (principal)
CPT/HCPCS: 36415; 80053; 85027; 85651; 86140; 86618; 86666; 86753; 86780; 87040; 99283-25

== ENCOUNTER 2022-04-13 10:46 | Emergency (ER) | payer BC ==
[2022-04-13] MEDS ORDERED: DEXAMETHASONE SOD PHOSPHATE 10 MG/1 ML VIAL ONE ×2 (10:59→11:18)
[2022-04-13] MEDS ORDERED: LIDOCAINE VISCOUS 2% ORAL/TOP 15 ML UNIT-DOSE CUP ONE (10:59)
[2022-04-13] MEDS ORDERED: KETOROLAC TROMETHAMINE 30 MG/1 ML VIAL ONE (11:00)
[2022-04-13] MEDS ORDERED: DEXAMETHASONE SOD PHOSPHATE 4 MG/1 ML VIAL IM ONE (11:04)
[2022-04-13] MEDS ORDERED: LIDOCAINE VISCOUS 2% ORAL/TOP 100 ML BOTTLE MM ONE (11:05)
[2022-04-13] MEDS ORDERED: KETOROLAC TROMETHAMINE 30 MG/1 ML VIAL IM ONE (11:05)
[2022-04-13 11:13] VITALS: BP 150/84; PULSE 75; RESP 20; TEMP 97.9; BMI 31.9
[2022-04-13 12:46] LABS: THROAT:GRP A STREP NOT DETECTED (NOTDETECTED)
== END 2022-04-13 12:18 | disposition home or self-care (01) ==
LOC: FER 10:46
PROC: 3E023GC Introduction of Other Therapeutic Substance into Muscle, Percutaneous Approach (ICD-10-PCS; principal; 2022-04-13)
DX: B34.9 Viral infection, unspecified (principal)
CPT/HCPCS: 0241U-QW; 87651; 99284-25

== ENCOUNTER 2022-10-24 09:52 | Observation (INO) | payer BC ==
[2022-10-24 10:01] VITALS: BMI 34.4
[2022-10-24] MEDS ORDERED: LIDOCAINE 5% TOPICAL PATCH TP ONE (10:13)
[2022-10-24 10:26] LABS: INR 0.97 (0.83-1.09); PROTHROMBIN TIME (PATIENT) 11.2 SEC (9.7-13.0)
[2022-10-24 10:29] LABS: ACTIVATED PTT 35.4 SECONDS (25.2-36.5)
[2022-10-24 10:44] LABS: HEMATOCRIT 50.3 % (35.4-49); HEMOGLOBIN 16.5 G/dL (11.7-16.9); MCH 29.8 pg (25.7-33.7); MCHC 32.8 g/dl (32.0-35.9); MEAN PLT VOLUME 8.1 fl (7.5-11.1); PLATELET COUNT 278.4 10^3/uL (134-434); RBC 5.53 10^6/uL (4.00-5.60); WHITE BLOOD COUNT 10.1 10^3/uL (4.0-10.8)
[2022-10-24 10:50] LABS: BILIRUBIN,TOTAL 0.7 mg/dl (0.2-1); CALCIUM 9.4 mg/dl (8.5-10); CREATININE 1.1 mg/dl (0.55-1.3); POTASSIUM 4.4 mmol/L (3.5-5.1); TOT PROT 6.9 g/dl (6.4-8.2)
[2022-10-24 10:57] LABS: PLATELET ESTIMATE ADEQUATE
[2022-10-24] MEDS ORDERED: ASPIRIN 81 MG CHEWABLE TABLETS PO ONE (11:43)
[2022-10-24] MEDS ORDERED: valACYclovir HCL 1000 MG TABLET PO ONE (11:43)
[2022-10-24] MEDS ORDERED: valACYclovir HCL 500 MG TABLET (FP) ONE (11:52)
[2022-10-24] MEDS ORDERED: ASPIRIN 81 MG CHEWABLE TABLETS ONE (11:52)
[2022-10-24] MEDS ORDERED: ACETAMINOPHEN 325 MG TABLET (FP) PO PRN (12:13)
[2022-10-24] MEDS ORDERED: HEPARIN NA (PORCINE) 5,000 UNITS/ML 1ML VIAL IVPUSH PRN ×3 (13:32→13:46)
[2022-10-24] MEDS ORDERED: HEPARIN - 25,000 UNIT in SODIUM CHLORIDE 495 ML IV SCH (13:45)
[2022-10-24] MEDS ORDERED: HEPARIN NA (PORCINE) 5,000 UNITS/ML 1ML VIAL IVPUSH ONE ×2 (13:46→16:36)
[2022-10-24] MEDS ORDERED: DEXTROSE 5%-NORMAL SALINE 1,000 ML IV SCH (14:00)
[2022-10-24] MEDS ORDERED: HEPARIN INFUSION - 25,000 UNITS/500 ML INFUS.BAG IVPB SCH (14:00)
[2022-10-24] MEDS: HEPARIN INFUSION - 25,000 UNITS/500 ML INFUS.BAG IVPB SCH (16:15)
[2022-10-24] MEDS ORDERED: LIDOCAINE PATCH REMOVAL MC SCH (22:00)
[2022-10-25] MEDS: HEPARIN NA (PORCINE) 5,000 UNITS/ML 1ML VIAL IVPUSH PRN ×2 (00:57→15:19)
[2022-10-25 09:08] LABS: ALBUMIN 3.9 g/dl (3.4-5.0); BILIRUBIN,TOTAL 0.5 mg/dl (0.2-1); CALCIUM 9.1 mg/dl (8.5-10); PHOSPHOROUS 3.7 mg/dl (2.5-4.9); POTASSIUM 4.2 mmol/L (3.5-5.1); TOT PROT 6.7 g/dl (6.4-8.2)
[2022-10-25 09:39] LABS: EOS % 10.3 % (0-4.5); HEMATOCRIT 45.4 % (35.4-49); HEMOGLOBIN 15.7 GM/dL (11.7-16.9); LYMPH % 21.9 % (8-40); MCHC 34.5 g/dl (32.0-35.9); MEAN CELL VOLUME 86.8 fl (80-96); MEAN PLT VOLUME 7.5 fl (7.5-11.1); MONO % 7.2 % (3.8-10.2); NEUT % 59.6 % (42.8-82.8); PLATELET COUNT 274 10^3/uL (134-434); RBC 5.23 M/mm3 (4.00-5.60); RDW 14.6 % (11.9-15.9)
[2022-10-25] MEDS ORDERED: LIDOCAINE 5% TOPICAL PATCH TP SCH (10:00)
[2022-10-25] MEDS ORDERED: valACYclovir HCL 500 MG TABLET (FP) PO SCH (14:00)
[2022-10-25 14:33] VITALS: BP 148/76; PULSE 72; RESP 18; TEMP 98.3
[2022-10-25] MEDS: HEPARIN INFUSION - 25,000 UNITS/500 ML INFUS.BAG IVPB SCH (15:18)
[2022-10-25] MEDS ORDERED: APIXABAN 5 MG TABLET PO ONE (17:45)
[2022-10-25] MEDS ORDERED: LIDOCAINE PATCH REMOVAL MC SCH (22:00)
== END 2022-10-25 18:15 | disposition home or self-care (01) ==
LOC: FER 09:52 → FM/S 12:11
PROVIDERS: ADMIT Internal Medicine; ATTEND Internal Medicine
PROC: 3E033GC Introduction of Other Therapeutic Substance into Peripheral Vein, Percutaneous Approach (ICD-10-PCS; principal; 2022-10-24)
DX: I26.99 Other pulmonary embolism without acute cor pulmonale (principal); R07.9 Chest pain, unspecified; Z88.0 Allergy status to penicillin; R42 Dizziness and giddiness; Z87.891 Personal history of nicotine dependence
CPT/HCPCS: 36415; 71046-TC-FY; 71275-TC; 80053; 80061; 83036; 83735; 83880; 84100; 84484; 85025; 85027; 85379; 85610; 85613; 85730; 85732; 87529; 93005; 93306-TC; 93970-TC; 99285-25; C9803-CS; G0378; J1644; Q9967; U0003; U0005

== ENCOUNTER 2022-12-05 11:05 | Emergency (ER) | payer BC ==
[2022-12-05 11:24] VITALS: BMI 33.4
[2022-12-05 11:35] LABS: INR 0.99 (0.83-1.09); PROTHROMBIN TIME (PATIENT) 11.5 SEC (9.7-13.0)
[2022-12-05 11:37] LABS: ACTIVATED PTT 37.1 SECONDS (25.2-36.5)
[2022-12-05 11:38] LABS: HEMATOCRIT 48.2 % (35.4-49); HEMOGLOBIN 16.3 G/dL (11.7-16.9); MCH 30.2 pg (25.7-33.7); MCHC 33.7 g/dl (32.0-35.9); MEAN CELL VOLUME 89.5 fl (80-96); MEAN PLT VOLUME 8.4 fl (7.5-11.1); PLATELET COUNT 181.1 10^3/uL (134-434); RBC 5.38 10^6/uL (4.00-5.60); RDW 14.3 % (11.9-15.9); WHITE BLOOD COUNT 6.8 10^3/uL (4.0-10.8)
[2022-12-05 11:47] LABS: ALBUMIN 4.5 g/dl (3.4-5.0); BILIRUBIN,TOTAL 0.6 mg/dl (0.2-1); BLOOD UREA NITROGEN 26.9 mg/dl (7-18); CALCIUM 9.8 mg/dl (8.5-10.1); CREATININE 1.1 mg/dl (0.6-1.3); SGOT/AST 37.8 U/L (15-37); SGPT/ALT 54.7 U/L (7-52); TOT PROT 6.4 g/dl (6.4-8.2)
[2022-12-05 12:19] LABS: PLATELET ESTIMATE ADEQUATE
[2022-12-05 14:00] VITALS: BP 127/67; PULSE 68; RESP 18; TEMP 98.9
[2022-12-05 14:01] LABS: N-TERMINAL BNP 30.5 pg/ml (5-125)
== END 2022-12-05 15:16 | disposition home or self-care (01) ==
LOC: FER 11:05
DX: R07.81 Pleurodynia (principal); R07.9 Chest pain, unspecified
CPT/HCPCS: 36415; 71275-TC; 80053; 83880; 84484; 85025; 85610; 85730; 93005; 99285-25; Q9967

== ENCOUNTER 2022-12-21 16:59 | Emergency (ER) | payer BC ==
[2022-12-21 17:10] VITALS: BP 143/82; PULSE 87; RESP 20; TEMP 98.3; BMI 33.4
== END 2022-12-21 17:43 | disposition home or self-care (01) ==
LOC: FER 16:59
DX: B34.9 Viral infection, unspecified (principal); R07.89 Other chest pain; R05.9 Cough, unspecified; R61 Generalized hyperhidrosis; Z20.822 Contact with and (suspected) exposure to COVID-19
CPT/HCPCS: 0241U-QW; 71046-TC-FY; 99284-25

== ENCOUNTER 2023-01-04 22:16 | Emergency (ER) | payer BC ==
[2023-01-04 22:20] VITALS: BP 152/90; PULSE 87; RESP 18; TEMP 97.9; BMI 33.4
[2023-01-04] MEDS ORDERED: PANTOPRAZOLE SODIUM 40 MG VIAL IVPUSH ONE (22:45)
[2023-01-04] MEDS ORDERED: ACETAMINOPHEN 1000 MG/100 ML BAG IVPB ONE (22:45)
[2023-01-04] MEDS ORDERED: PANTOPRAZOLE SODIUM 40 MG VIAL ONE (22:46)
[2023-01-04] MEDS ORDERED: ACETAMINOPHEN INJECTION 100 ML IVPB ONE (22:46)
[2023-01-04 22:47] LABS: HEMATOCRIT 43.2 % (35.4-49); HEMOGLOBIN 15.1 G/dL (11.7-16.9); MEAN CELL VOLUME 88.7 fl (80-96); MEAN PLT VOLUME 6.9 fl (7.5-11.1); PLATELET COUNT 212.7 10^3/uL (134-434); RBC 4.87 10^6/uL (4.00-5.60); RDW 14.1 % (11.9-15.9); WHITE BLOOD COUNT 11.9 10^3/uL (4.0-10.8)
[2023-01-04 23:08] LABS: ALBUMIN 4.4 g/dl (3.4-5.0); BILIRUBIN,TOTAL 0.4 mg/dl (0.2-1); BLOOD UREA NITROGEN 36.6 mg/dl (7-18); CALCIUM 9.3 mg/dl (8.5-10.1); CREATININE 1.2 mg/dl (0.6-1.3); POTASSIUM 3.7 mmol/L (3.5-5.1); SGOT/AST 33.2 U/L (15-37); TOT PROT 6.4 g/dl (6.4-8.2)
== END 2023-01-05 00:46 | disposition home or self-care (01) ==
LOC: FER 22:16
PROC: 3E033NZ Introduction of Analgesics, Hypnotics, Sedatives into Peripheral Vein, Percutaneous Approach (ICD-10-PCS; principal; 2023-01-04)
PROC: 3E033GC Introduction of Other Therapeutic Substance into Peripheral Vein, Percutaneous Approach (ICD-10-PCS; 2023-01-04)
DX: R07.9 Chest pain, unspecified (principal); R06.02 Shortness of breath
CPT/HCPCS: 36415; 71275-TC; 80053; 82550; 82553; 84484; 85027; 93005; 99285-25; Q9967

== ENCOUNTER 2023-02-06 15:41 | Emergency (ER) | payer BC ==
[2023-02-06] MEDS ORDERED: FAMOTIDINE 20 MG/50 ML IVPB 20 MG/50 ML MG IVPB ONE ×2 (15:46→15:47)
[2023-02-06] MEDS ORDERED: ACETAMINOPHEN INJECTION 100 ML IVPB ONE (15:46)
[2023-02-06] MEDS ORDERED: SODIUM CHLORIDE 0.9% 1000 ML INFUS.BAG IV ONE ×2 (15:47→17:26)
[2023-02-06] MEDS ORDERED: ACETAMINOPHEN 1000 MG/100 ML BAG IVPB ONE (15:47)
[2023-02-06 15:56] VITALS: BP 139/63; PULSE 68; RESP 20; TEMP 97.7; BMI 33.4
[2023-02-06 16:36] LABS: INR 1.07 (0.83-1.09); PROTHROMBIN TIME (PATIENT) 12.4 SEC (9.7-13.0)
[2023-02-06 16:39] LABS: ACTIVATED PTT 41.3 SECONDS (25.2-36.5)
[2023-02-06 16:42] LABS: HEMOGLOBIN 14.9 G/dL (11.7-16.9); MCH 30.5 pg (25.7-33.7); MCHC 33.8 g/dl (32.0-35.9); MEAN CELL VOLUME 90.3 fl (80-96); MEAN PLT VOLUME 7.3 fl (7.5-11.1); PLATELET COUNT 213.6 10^3/uL (134-434); RBC 4.87 10^6/uL (4.00-5.60); RDW 14.9 % (11.9-15.9); WHITE BLOOD COUNT 6.1 10^3/uL (4.0-10.8)
[2023-02-06 16:52] LABS: ALBUMIN 4.6 g/dl (3.4-5.0); BLOOD UREA NITROGEN 20.5 mg/dl (7-18); CALCIUM 9.6 mg/dl (8.5-10.1); CREATININE 1.1 mg/dl (0.6-1.3); MAGNESIUM 1.9 mg/dL (1.8-2.4); POTASSIUM 3.8 mmol/L (3.5-5.1); SGOT/AST 21.4 U/L (15-37); SGPT/ALT 31.1 U/L (7-52); TOT PROT 6.7 g/dl (6.4-8.2)
[2023-02-06 17:18] LABS: PLATELET ESTIMATE ADEQUATE
[2023-02-06] MEDS ORDERED: KETOROLAC TROMETHAMINE 15 MG/ML VIAL IVPUSH ONE (17:35)
[2023-02-06] MEDS ORDERED: CIPROFLOXACIN 500 MG TABLET (RESTRICTED TO ID) PO ONE (17:35)
[2023-02-06] MEDS ORDERED: KETOROLAC TROMETHAMINE 30 MG/1 ML VIAL ONE (17:37)
[2023-02-06] MEDS ORDERED: CIPROFLOXACIN 250 MG TABLET (RESTRICTED TO ID) PO ONE (17:37)
[2023-02-06 18:18] LABS: BILIRUBIN,TOTAL 0.4 mg/dL (0.2-1)
== END 2023-02-06 18:57 | disposition home or self-care (01) ==
LOC: FER 15:41
PROC: 3E033GC Introduction of Other Therapeutic Substance into Peripheral Vein, Percutaneous Approach (ICD-10-PCS; principal; 2023-02-06)
PROC: 3E033NZ Introduction of Analgesics, Hypnotics, Sedatives into Peripheral Vein, Percutaneous Approach (ICD-10-PCS; 2023-02-06)
PROC: 3E0333Z Introduction of Anti-inflammatory into Peripheral Vein, Percutaneous Approach (ICD-10-PCS; 2023-02-06)
DX: R10.33 Periumbilical pain (principal); R19.7 Diarrhea, unspecified; K52.9 Noninfective gastroenteritis and colitis, unspecified; I88.0 Nonspecific mesenteric lymphadenitis; Z20.822 Contact with and (suspected) exposure to COVID-19
CPT/HCPCS: 0241U-QW; 36415; 74177-TC; 80053; 83690; 83735; 85027; 85610; 85730; 99285-25; Q9967

== ENCOUNTER 2023-04-20 19:30 | Emergency (ER) | payer BC ==
[2023-04-20 19:50] VITALS: BP 156/99; PULSE 93; RESP 20; TEMP 98; BMI 33.4
[2023-04-20] MEDS ORDERED: diazePAM 5 MG TABLET PO ONE (19:50)
[2023-04-20] MEDS ORDERED: diazePAM 5 MG TABLET ONE (19:59)
[2023-04-20 20:09] LABS: HEMATOCRIT 47.8 % (35.4-49); HEMOGLOBIN 16.1 G/dL (11.7-16.9); MCH 30.2 pg (25.7-33.7); MCHC 33.6 g/dl (32.0-35.9); MEAN CELL VOLUME 89.9 fl (80-96); MEAN PLT VOLUME 7.1 fl (7.5-11.1); PLATELET COUNT 255.5 10^3/uL (134-434); RBC 5.32 10^6/uL (4.00-5.60); RDW 14.2 % (11.9-15.9); WHITE BLOOD COUNT 8.4 10^3/uL (4.0-10.8)
[2023-04-20 20:33] LABS: ALBUMIN 4.4 g/dl (3.4-5.0); BILIRUBIN,TOTAL 0.3 mg/dl (0.2-1); CALCIUM 9.5 mg/dl (8.5-10.1); CREATININE 1.3 mg/dl (0.6-1.3); TOT PROT 6.6 g/dl (6.4-8.2)
[2023-04-20 20:34] LABS: PLATELET ESTIMATE ADEQUATE
== END 2023-04-20 22:17 | disposition home or self-care (01) ==
LOC: FER 19:30
DX: R07.89 Other chest pain (principal)
CPT/HCPCS: 36415; 71046-TC-FY; 80053; 83690; 84484; 85025; 85379; 93005; 99285-25